=== PATIENT | female | born 1955 | race Caucasian/White ===

== ENCOUNTER 2016-10-31 22:33 | Emergency (ER) | payer MEDICARE, MEDICAID ==
[~2016-10-31] VITALS: Ht 177.8 cm; Wt 121.0 kg
[~2016-10-31 22:33] MED LIST: ALBU.5I NEB; ALBUAER3 INH; BENZ100 PO; CARV3.12 PO; HYDR12.57 PO; LISI2.5T3 PO; PRAV10TA PO; SPIRCAP INH
[2016-10-31 22:40] VITALS: BP 188/103; PULSE 71; RESP 18; TEMP 98.2; O2SAT 98
[2016-10-31] MEDS ORDERED: SODIUM CHLORIDE 0.9% FLUSH 5 ML FLUSH IVF PRN (23:15)
[2016-10-31] MEDS ORDERED: RESP: ALBUTEROL 2.5 MG/IPRATROPIUM 0.5 MG NEB (SCH) INH ONE (23:15)
[2016-10-31 23:16] VITALS: BP 183/87; PULSE 58; RESP 20; TEMP 97.7; O2SAT 98
--- NOTE | 2016-10-31 23:22 | PD ---
HPI Chief Complaint: Cold / Flu Symptoms Time Seen by Provider: 23:14 Travel History International Travel<30 days: No Contact w/Intl Traveler<30days: No Traveled to known affect area: No History of Present Illness HPI 60-year-old female with history of hypertension GERD COPD melanoma and anxiety presents to the emergency department for complaint of recent respiratory illness 3 days with increasing shortness of breath this evening. Intermittent palpitations occasional facial twitching and prescribed codeine cough syrup by her primary care provider for these symptoms. Patient is been a nonsmoker since August. Patient is currently not taking antibiotic. Patient's had no fever chills. Patient states cough is productive of black to yellow sputum. Patient denies chest pain. Patient denies any nausea vomiting abdominal pain or diarrhea. 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 No prior history of any intestinal menses. No dysuria frequency or urgency. Patient states she has been taking her medications as prescribed. Patient is noted with exertion and resting supine shortness of breath has worsened. No report of lower extremity pain or swelling. No history of CAD or CHF. PFSH Past Medical History Narrative Medical COPD hypertension GERD melanoma chemotherapy high cholesterol CVA exploratory laparotomy no tobacco use nursing notes reviewed Asthma: Yes Anxiety: Yes Cancer: Yes Cardiac Catheterization: Yes Cardiovascular Problems: Yes (htn on meds) High Cholesterol: Yes Chemotherapy: Yes (2011) Chest Pain: Yes COPD: Yes Cerebrovascular Accident: Yes Diminished Hearing: No GERD: Yes Hypertension: Yes Respiratory: Yes (copd) Immunizations Current: Yes Menopausal: Yes Ovarian Cysts: Yes Past Surgical History Abdominal Surgery: Yes (EXPLOR. LAP FOR REMOVAL OF FB ) Gynecologic Surgery: Yes (CYST REMOVED LEFT SIDE) Hysterectomy: Yes Other Surgery: Yes (CANCER MELANOMA REMOVAL LEFT ARM) Social History Alcohol Use: No Tobacco Use: No Substance Use: No Allergies-Medications (Allergen,Severity, Reaction): Coded Allergies: Ciprofloxacin (Verified Allergy, Severe, TONGUE SWELLING, 09/22/16) Reported Meds & Prescriptions Reported Meds & Active Scripts Active Reported Robitussin Peak Cold Dm 100-10 mg/5Ml (Dextromethorphan-Guaifenesin) 1 Syp Syp Methylprednisolone 4 Mg Tab 4 Mg PO DAILY Tramadol (Tramadol HCl) 50 Mg Tab 50 Mg PO BID PRN Lovastatin 10 Mg Tab 10 Mg PO DAILY Spiriva Handihaler (Tiotropium Inh) 18 Mcg Cap 18 Mcg INH DAILY 1 capsule = 18 mcg Proair Hfa 8.5 GM Inh (Albuterol Sulfate) 90 Mcg/Act Aer 2 Puff INH Q4-6H PRN 108 mcg/actuation Albuterol Neb (Albuterol Sulfate) 2.5 Mg/0.5 Ml Neb 2.5 Mg NEB Q6HR NEB Note: The Albuterol Sulfate Inhalation Solution is concentrated and must be diluted. Read complete instructions carefully before using. Hydrochlorothiazide 12.5 Mg Cap 12.5 Mg PO DAILY Lisinopril 2.5 Mg Tab 2.5 Mg PO DAILY Review of Systems Except as stated in HPI: all other systems reviewed are Neg General / Constitutional: No: Fever, Chills HENT: Positive: Headaches, Lightheadedness, No: Congestion Cardiovascular: Positive: Palpitations, No: Chest Pain or Discomfort, Diaphoresis, Syncope Respiratory: Positive: Cough, Shortness of Breath, Wheezing, No: Hemoptysis, Pleuritic Pain Gastrointestinal: No: Nausea, Vomiting, Diarrhea, Abdominal Pain Genitourinary: No: Urgency, Frequency, Dysuria Musculoskeletal: No: Myalgias, Arthralgias Skin: No Rash Neurologic: No: Weakness, Dizziness Psychiatric: Positive: Anxiety Hematologic/Lymphatic: No: Lymph Node Enlargement Physical Exam Narrative GENERAL: Well-developed well-nourished female in no acute distress no respiratory distress SKIN: Warm and dry. HEAD: Normocephalic. EYES: No scleral icterus. No injection or drainage. NECK: Supple, trachea midline. No JVD or lymphadenopathy. CARDIOVASCULAR: Regular rate and rhythm without murmurs, gallops, or rubs. RESPIRATORY: Breath sounds equal bilaterally. No accessory muscle use. GASTROINTESTINAL: Abdomen soft, non-tender, nondistended. MUSCULOSKELETAL: No cyanosis, or edema. BACK: Nontender without obvious deformity. No CVA tenderness. Data Data Last Documented VS Vital Signs Date Time Temp Pulse Resp B/P Pulse Ox O2 Delivery O2 Flow Rate FiO2 10/31/16 23:30 20 99 10/31/16 23:23 Nasal Cannula 10/31/16 23:23 57 183/87 10/31/16 23:16 97.7 Orders Complete Blood Count With Diff (10/31/16 23:15) Comprehensive Metabolic Panel (10/31/16 23:15) B-Type Natriuretic Peptide (10/31/16 23:15) Act Partial Throm Time (Ptt) (10/31/16 23:15) Prothrombin Time / Inr (Pt) (10/31/16 23:15) Magnesium (Mg) (10/31/16 23:15) Ckmb (Isoenzyme) Profile (10/31/16 23:15) Troponin I (10/31/16 23:15) Urinalysis - C+S If Indicated (10/31/16 23:15) Iv Access Insert/Monitor (10/31/16 23:15) Electrocardiogram (10/31/16 23:15) Ecg Monitoring (10/31/16 23:15) Oximetry (10/31/16 23:15) Oxygen Administration (10/31/16 23:15) Chest, Single Ap (10/31/16 23:15) Sodium Chloride 0.9% Flush (Ns Flush) (10/31/16 23:15) Albuterol-Ipratropium Neb (Duoneb Neb) (10/31/16 23:15) CKMB (10/31/16 23:50) CKMB% (10/31/16 23:50) D-Dimer (10/31/16 23:50) Labs Laboratory Tests Test 10/31/16 10/31/16 23:30 23:50 Urine Color YELLOW Urine Turbidity CLEAR Urine pH 6.0 Urine Specific [place] 1.015 Urine Protein NEG mg/dL Urine Glucose (UA) NEG mg/dL Urine Ketones NEG mg/dL Urine Occult Blood TRACE Urine Nitrite NEG Urine Bilirubin NEG Urine Leukocyte Esterase SMALL Urine RBC 0-3 /hpf Urine WBC 6-8 /hpf Urine Squamous Epithelial 0-5 /hpf Cells Urine Bacteria RARE /hpf Microscopic Urinalysis Comment CULT NOT INDICATED White Blood Count 9.1 TH/MM3 Red Blood Count 4.17 MIL/MM3 Hemoglobin 12.4 GM/DL Hematocrit 36.5 % Mean Corpuscular Volume 87.5 FL Mean Corpuscular Hemoglobin 29.6 PG Mean Corpuscular Hemoglobin 33.9 % Concent Red Cell Distribution Width 12.3 % Platelet Count 241 TH/MM3 Mean Platelet Volume 10.6 FL Neutrophils (%) (Auto) 78.9 % Lymphocytes (%) (Auto) 16.4 % Monocytes (%) (Auto) 2.9 % Eosinophils (%) (Auto) 0.2 % Basophils (%) (Auto) 1.6 % Neutrophils # (Auto) 7.2 TH/MM3 Lymphocytes # (Auto) 1.5 TH/MM3 Monocytes # (Auto) 0.3 TH/MM3 Eosinophils # (Auto) 0.0 TH/MM3 Basophils # (Auto) 0.1 TH/MM3 CBC Comment DIFF FINAL Differential Comment Prothrombin Time 10.5 SEC Prothromb Time International 1.0 RATIO Ratio Activated Partial 25.4 SEC Thromboplast Time D-Dimer Quantitative (PE/DVT) LESS THAN 0.19 MG/L FEU Sodium Level 139 MEQ/L Potassium Level 4.5 MEQ/L Chloride Level 103 MEQ/L Carbon Dioxide Level 23.0 MEQ/L Anion Gap 13 MEQ/L Blood Urea Nitrogen 23 MG/DL Creatinine 1.10 MG/DL Estimat Glomerular Filtration 50 ML/MIN Rate Random Glucose 115 MG/DL Calcium Level 8.1 MG/DL Magnesium Level 1.8 MG/DL Total Bilirubin 0.3 MG/DL Aspartate Amino Transf 41 U/L (AST/SGOT) Alanine Aminotransferase 54 U/L (ALT/SGPT) Alkaline Phosphatase 50 U/L Total Creatine Kinase 116 U/L Creatine Kinase MB 1.4 NG/ML Troponin I LESS THAN 0.02 NG/ML B-Type Natriuretic Peptide 72 PG/ML Total Protein 6.6 GM/DL Albumin 3.4 GM/DL [facility] Medical Decision Making Medical Screen Exam Complete: Yes Emergency Medical Condition: Yes Medical Record Reviewed: Yes (Sore throat) Interpretation(s) EKG: SB [address] elevation, injury pattern, and no ectopy Troponin I: Less than 0.02, not elevated CK 116, not elevated BNP: 72, not elevated Coagulation studies within normal range CBC is automated differential within normal limits Metabolic panel remarkable for renal insufficiency BUN 23 creatinine 1.10 also mild hypocalcemia of 8.1 bicarbonate and anion gap in normal range; mild elevation of transaminases (patient is aware of prior abnormal LFT's) Differential Diagnosis Dyspnea, exacerbation COPD, pneumonia, CHF, PE, ACS Narrative Course @ 1:25 AM patient resting supine in no distress with stable vital signs room air O2 sats 97-98%; lung sounds clear. Patient aware of lab results ekg and cxr findings. Patient is stable for outpatient management. Diagnosis Primary Impression: Bronchitis Additional Impressions: Persistent dry cough HTN (hypertension) Referrals: Primary Care Physician 2 days Patient Instructions: General Instructions Additional Instructions: Take medications as prescribed Follow-up with primary care provider call office in a.m. Take acetaminophen/Tylenol every 4 hours as needed for fever 100.4F or greater Take new prescription Lasix/furosemide as needed for swelling of your feet Return to emergency for for any concerns or change in condition Med/Other Pt SpecificInfo: Prescription(s) given Scripts Furosemide (Lasix)20 Mg Tab20 Mg PO DAILY #5 TAB Ref 0 Prov:Amie Hager MD 11/01/16 Cephalexin (Keflex)500 Mg [id number] Mg PO Q6H 7 Days Ref 0 Prov:Amie Hager MD 11/01/16 Disposition: 01 DISCHARGE HOME Condition: Stable Amie Hager MD Oct 31, 2016 23:22
[2016-10-31 23:23] VITALS: BP 183/87; PULSE 57; RESP 20; O2SAT 99
[2016-10-31 23:36] LABS: BLOOD, URINE TRACE (NEG); GLUCOSE,URINE NEG (NEG); KETONE, URINE NEG (NEG); NITRITE,URINE NEG (NEG)
[2016-10-31 23:40] LABS: RBC, URINE 0-3 /hpf (0-3); URINE COLOR YELLOW (YELLW/STRAW)
[2016-10-31 23:41] LABS: BACTERIA, URINE RARE /hpf; COMMENT (UR) CULT NOT INDICATED; CULTURE IF INDICATED CULT NOT INDICATED; SQUAMOUS EPITHELIAL CELL URINE 0-5 /hpf (0-5)
[2016-10-31 23:42] VITALS: BP 154/88; PULSE 58; RESP 20; O2SAT 95
[2016-10-31 23:58] LABS: AUTOMATED NEUTROPHIL # 7.2 TH/MM3 (1.8-7.7); BASOPHIL # 0.1 TH/MM3 (0-0.2); BASOPHIL % 1.6 % (0.0-2.0); EOSINOPHIL % 0.2 % (0.0-4.0); HEMATOCRIT 36.5 % (35.0-46.0); HEMO FLAGS DIFF FINAL; LYMPH % 16.4 % (9.0-44.0); LYMPHOCYTE # 1.5 TH/MM3 (1.0-4.8); MEAN CELL VOLUME 87.5 FL (80.0-100.0); MEAN CORPUSCULAR HEMOGLOBIN 29.6 PG (27.0-34.0); MEAN CORPUSCULAR HGB CONC 33.9 % (32.0-36.0); MONO % 2.9 % (0.0-8.0); NEUT % 78.9 % (16.0-70.0); PLATELET COUNT 241 TH/MM3 (150-450); RED BLOOD COUNT 4.17 MIL/MM3 (4.00-5.30); RED CELL DISTRIBUTION WIDTH 12.3 % (11.6-17.2); WHITE BLOOD COUNT 9.1 TH/MM3 (4.0-11.0)
[2016-11-01 00:05] LABS: CHLORIDE 103 MEQ/L (98-107); POTASSIUM 4.5 MEQ/L (3.5-5.1); SODIUM (NA) 139 MEQ/L (136-145)
--- NOTE | 2016-11-01 00:07 | RADHPO ---
EXAM DATE/TIME: 10/31/2016 23:55 [facility] COMPARISON: CHEST SINGLE AP, September 22, 2016, 18:04. INDICATIONS : Shortness of breath. MEDICAL HISTORY : Chronic obstructive pulmonary disease. Emphysema. Hypertension. SURGICAL HISTORY : None. ENCOUNTER: Initial ACUITY: 1 day PAIN SCORE: 0/10 LOCATION: Bilateral chest FINDINGS: Portable upright AP view of the chest demonstrates a normal-sized cardiac silhouette. There are mild interstitial opacities in the lower lung zones bilaterally. No pleural effusion or pneumothorax is vi sualized. Bones and soft tissues demonstrate no acute finding. CONCLUSION: Mild interstitial opacities in lower lung zones could represent pulmonary edema in the appropriate cl inical setting. Junior Hernández MD on November 01, 2016 at 0:05 Board Certified Radiologist. This report was verified electronically.
[2016-11-01 00:09] LABS: ANION GAP 13 MEQ/L (5-15); BLOOD UREA NITROGEN 23 MG/DL (7-18); MAGNESIUM 1.8 MG/DL (1.5-2.5)
[2016-11-01 00:10] LABS: APTT (PATIENT) 25.4 SEC (24.3-30.1); PROTHROMBIN TIME - PATIENT 10.5 SEC (9.8-11.6)
[2016-11-01 00:12] LABS: ALT (GPT) 54 U/L (10-53); AST (GOT) 41 U/L (15-37); GLOMERULAR FILTRATION RATE 50 ML/MIN (>89)
[2016-11-01 00:13] LABS: TOTAL BILIRUBIN ADULT 0.3 MG/DL (0.2-1.0)
[2016-11-01 00:14] LABS: ALKALINE PHOSPHATASE 50 U/L (45-117); CREATINE KINASE 116 U/L (26-192)
[2016-11-01] MEDS ORDERED: METH4TAB6 PO (00:15)
[2016-11-01] MEDS ORDERED: TRAM50TA PO (00:15)
[2016-11-01] MEDS ORDERED: ROBISYP8 (00:15)
[2016-11-01] MEDS ORDERED: LOVA10TA PO (00:15)
[2016-11-01 00:27] LABS: CKMB 1.4 NG/ML (0.5-3.6)
[2016-11-01 00:42] VITALS: BP 140/73; PULSE 60; RESP 20; O2SAT 95
[2016-11-01] MEDS ORDERED: CEPH-460 PO (01:29)
[2016-11-01 01:30] VITALS: BP 145/79
[2016-11-01] MEDS ORDERED: FURO1TAB62 PO (01:30)
--- NOTE | 2016-11-01 13:31 | EKG ---
Date Performed: 10/31/2016 Time Performed: 23:28:14 PTAGE: 60 years EKG: Sinus bradycardia Normal ECG except for rate PREVIOUS TRACING : 03/30/2015 16.47 Since previous tracing, no significant change noted DOCTOR: Denae Hunt Interpretating Date/Time 11/01/2016 13:30:25
== END 2016-11-01 01:48 | disposition home or self-care (01) ==
LOC: PHED 22:33
DX: J44.9 Chronic obstructive pulmonary disease, unspecified (principal); J45.909 Unspecified asthma, uncomplicated; I10 Essential (primary) hypertension; Z79.899 Other long term (current) drug therapy
CPT/HCPCS: 71010; 80053; 81001; 82550; 82552; 83735; 83880; 84484; 85025; 85379; 85610; 85730; 93005; 94664

== ENCOUNTER 2017-01-08 14:15 | Emergency (ER) | payer MEDICARE, MEDICAID ==
[~2017-01-08] VITALS: Ht 152.4 cm; Wt 125.0 kg
[~2017-01-08 14:15] MED LIST changes: -BENZ100 PO; -CARV3.12 PO; +CEPH-460 PO; +FURO1TAB62 PO; +LOVA10TA PO; +METH4TAB6 PO; -PRAV10TA PO; +ROBISYP8; +TRAM50TA PO
[2017-01-08 14:21] VITALS: BP 129/84; PULSE 74; RESP 16; TEMP 98.2; O2SAT 96
[2017-01-08] MEDS ORDERED: CARV12.52 PO (14:53)
[2017-01-08] MEDS ORDERED: LISI40TA PO (14:53)
[2017-01-08] MEDS ORDERED: ESOM1CAP16 PO (14:53)
[2017-01-08] MEDS ORDERED: ROBA750T PO (14:53)
[2017-01-08] MEDS ORDERED: LIDO1CRE8 TOPICAL (14:53)
[2017-01-08] MEDS ORDERED: LOVA40TA PO (14:53)
[2017-01-08] MEDS ORDERED: NAPR375T PO (14:53)
--- NOTE | 2017-01-08 15:00 | PD ---
HPI Chief Complaint: Dizziness Time Seen by Provider: 14:27 Travel History International Travel<30 days: No Contact w/Intl Traveler<30days: No Traveled to known affect area: No History of Present Illness HPI This 61-year-old woman who presents to the emergency department complaining of feeling incoherent weak and dizzy starting today. Chest with some right sided abdominal pain. She is a history of stomach problems and had a recent endoscopy and CT scan of her belly. She states she otherwise had been feeling generally well. She states she still feels dizzy now. She otherwise has been feeling generally well and healthy. No other complaints. History Past Medical History Narrative Medical COPD Hypertension GERD Hyperlipidemia History of melanoma Borderline diabetes Tetanus Vaccination: < 5 Years Influenza Vaccination: No Menopausal: Yes : 1 Para: 1 Social History Alcohol Use: No Tobacco Use: No Allergies-Medications (Allergen,Severity, Reaction): Coded Allergies: Ciprofloxacin (Verified Allergy, Severe, TONGUE SWELLING, 01/08/17) Reported Meds & Prescriptions Reported Meds & Active Scripts Active Lasix (Furosemide) 20 Mg Tab 20 Mg PO DAILY Reported Robaxin (Methocarbamol) 750 Mg Tab 750 Mg PO Q4H Naproxen 375 Mg Tab 375 Mg PO BID Lovastatin 40 Mg Tab 40 Mg PO DAILY Lisinopril 40 Mg Tab 40 Mg PO DAILY Lidocaine Topical (Lidocaine HCl) 5 % Cream 1 Applic TOPICAL QID PRN Esomeprazole DR 40 Mg Capdr 40 Mg PO DAILY Carvedilol 12.5 Mg Tab 12.5 Mg PO BID Tramadol (Tramadol HCl) 50 Mg Tab 50 Mg PO BID PRN Proair Hfa 8.5 GM Inh (Albuterol Sulfate) 90 Mcg/Act Aer 2 Puff INH Q4-6H PRN 108 mcg/actuation Albuterol Neb (Albuterol Sulfate) 2.5 Mg/0.5 Ml Neb 2.5 Mg NEB Q6HR NEB Note: The Albuterol Sulfate Inhalation Solution is concentrated and must be diluted. Read complete instructions carefully before using. Hydrochlorothiazide 12.5 Mg Cap 12.5 Mg PO DAILY Review of Systems Except as stated in HPI: all other systems reviewed are Neg Physical Exam Narrative GENERAL: Well-appearing 61 year-old woman, no acute distress. SKIN: Focused skin assessment warm/dry. HEAD: Atraumatic. Normocephalic. EYES: Pupils equal and round. No scleral icterus. No injection or drainage. ENT: No nasal bleeding or discharge. Mucous membranes pink and moist. NECK: Trachea midline. No JVD. CARDIOVASCULAR: Regular rate and rhythm. No murmur appreciated. RESPIRATORY: No accessory muscle use. Clear to auscultation. Breath sounds equal bilaterally. GASTROINTESTINAL: Abdomen soft, non-tender, nondistended. Hepatic and splenic margins not palpable. MUSCULOSKELETAL: No obvious deformities. No clubbing. No cyanosis. No edema. NEUROLOGICAL: Awake and alert. No obvious cranial nerve deficits. No facial asymmetry. EOMs full and equal without nystagmus. Strength full and equal upper and lower extremities proximal distal muscle groups. Normal finger to nose. Normal [id number]. PSYCHIATRIC: Appropriate mood and affect; insight and judgment normal. Data Data Last Documented VS Vital Signs Date Time Temp Pulse Resp B/P Pulse Ox O2 Delivery O2 Flow Rate FiO2 01/08/17 14:21 98.2 74 16 129/84 96 Orders Complete Blood Count With Diff (01/08/17 14:45) Comprehensive Metabolic Panel (01/08/17 14:45) Urinalysis - C+S If Indicated (01/08/17 14:45) Iv Access Insert/Monitor (01/08/17 14:45) Sodium Chlor 0.9% 1000 Ml Inj (Ns 1000 M (01/08/17 16:15) Labs Laboratory Tests Test 01/08/17 01/08/17 15:15 15:37 White Blood Count 6.7 TH/MM3 Red Blood Count 4.11 MIL/MM3 Hemoglobin 12.3 GM/DL Hematocrit 35.8 % Mean Corpuscular Volume 87.1 FL Mean Corpuscular Hemoglobin 30.0 PG Mean Corpuscular Hemoglobin 34.5 % Concent Red Cell Distribution Width 12.0 % Platelet Count 241 TH/MM3 Mean Platelet Volume 10.1 FL Neutrophils (%) (Auto) 63.6 % Lymphocytes (%) (Auto) 24.9 % Monocytes (%) (Auto) 6.8 % Eosinophils (%) (Auto) 1.4 % Basophils (%) (Auto) 3.3 % Neutrophils # (Auto) 4.2 TH/MM3 Lymphocytes # (Auto) 1.7 TH/MM3 Monocytes # (Auto) 0.5 TH/MM3 Eosinophils # (Auto) 0.1 TH/MM3 Basophils # (Auto) 0.2 TH/MM3 CBC Comment DIFF FINAL Differential Comment Sodium Level 139 MEQ/L Potassium Level 3.7 MEQ/L Chloride Level 103 MEQ/L Carbon Dioxide Level 22.8 MEQ/L Anion Gap 13 MEQ/L Blood Urea Nitrogen 38 MG/DL Creatinine 1.30 MG/DL Estimat Glomerular Filtration 41 ML/MIN Rate Random Glucose 105 MG/DL Calcium Level 9.2 MG/DL Total Bilirubin 0.5 MG/DL Aspartate Amino Transf 37 U/L (AST/SGOT) Alanine Aminotransferase 39 U/L (ALT/SGPT) Alkaline Phosphatase 46 U/L Total Protein 7.4 GM/DL Albumin 4.0 GM/DL Urine Collection Type CLEAN CATCH Urine Color YELLOW Urine Turbidity CLEAR Urine pH 5.5 Urine Specific [place] 1.008 Urine Protein NEG mg/dL Urine Glucose (UA) NEG mg/dL Urine Ketones NEG mg/dL Urine Occult Blood NEG Urine Nitrite NEG Urine Bilirubin NEG Urine Leukocyte Esterase TRACE Urine WBC 0-2 /hpf Urine Squamous Epithelial 6-8 /hpf Cells Microscopic Urinalysis Comment CULT NOT INDICATED Urine Collection Time 15:37 [facility] Medical Decision Making Medical Screen Exam Complete: Yes Emergency Medical Condition: Yes Interpretation(s) LABS: CBC is unremarkable. CMP is unremarkable. Mildly elevated BUN and creatinine UA is unremarkable Differential Diagnosis Weakness, dehydration, UTI, stroke, Narrative Course Medical decision making INITIAL: Is a well-appearing 58 year-old woman with general symptoms of feeling weak and dizzy. She looks generally well. I don't see any evidence of stroke. She states his belly pain is very new for her but she has a lot of previous diagnostic tests in her abdomen for unclear reasons including a recent CT scan. We'll check screening labs. It does look well have her follow-up with her primary physician. Diagnosis Primary Impression: Dizziness Additional Instructions: Drink plenty of fluids stay well-hydrated. Follow up with her primary doctor on Friday as planned. Return to the emergency department for any new or worsening symptoms. Disposition: 01 DISCHARGE HOME Condition: Stable Chino Riley MD Jan 08, 2017 15:00
[2017-01-08 15:29] LABS: AUTOMATED NEUTROPHIL # 4.2 TH/MM3 (1.8-7.7); BASOPHIL # 0.2 TH/MM3 (0-0.2); BASOPHIL % 3.3 % (0.0-2.0); EOSINOPHIL # 0.1 TH/MM3 (0-0.4); EOSINOPHIL % 1.4 % (0.0-4.0); HEMATOCRIT 35.8 % (35.0-46.0); HEMO FLAGS DIFF FINAL; LYMPH % 24.9 % (9.0-44.0); LYMPHOCYTE # 1.7 TH/MM3 (1.0-4.8); MEAN CELL VOLUME 87.1 FL (80.0-100.0); MEAN CORPUSCULAR HGB CONC 34.5 % (32.0-36.0); MONO % 6.8 % (0.0-8.0); NEUT % 63.6 % (16.0-70.0); PLATELET COUNT 241 TH/MM3 (150-450); RED BLOOD COUNT 4.11 MIL/MM3 (4.00-5.30); WHITE BLOOD COUNT 6.7 TH/MM3 (4.0-11.0)
[2017-01-08 15:44] LABS: CHLORIDE 103 MEQ/L (98-107); POTASSIUM 3.7 MEQ/L (3.5-5.1); SODIUM (NA) 139 MEQ/L (136-145)
[2017-01-08 15:49] LABS: ANION GAP 13 MEQ/L (5-15); BICARBONATE 22.8 MEQ/L (21.0-32.0); BLOOD UREA NITROGEN 38 MG/DL (7-18)
[2017-01-08 15:52] LABS: ALT (GPT) 39 U/L (10-53); AST (GOT) 37 U/L (15-37)
[2017-01-08 15:53] LABS: GLOMERULAR FILTRATION RATE 41 ML/MIN (>89)
[2017-01-08 15:54] LABS: TOTAL BILIRUBIN ADULT 0.5 MG/DL (0.2-1.0)
[2017-01-08 15:55] LABS: BLOOD, URINE NEG (NEG); GLUCOSE,URINE NEG (NEG); KETONE, URINE NEG (NEG); NITRITE,URINE NEG (NEG); PH, URINE 5.5 (5.0-8.5)
[2017-01-08 15:55] LABS: ALKALINE PHOSPHATASE 46 U/L (45-117)
[2017-01-08 16:00] LABS: COMMENT (UR) CULT NOT INDICATED; CULTURE IF INDICATED CULT NOT INDICATED; METHOD OF COLLECTION CLEAN CATCH; URINE COLOR YELLOW (YELLW/STRAW); WBC, URINE 0-2 /hpf (0-5)
[2017-01-08] MEDS ORDERED: SODIUM CHLOR 0.9% 1000 ML INJ 1,000 ML IV SCH (16:15)
== END 2017-01-08 17:31 | disposition home or self-care (01) ==
LOC: PHED 14:15
DX: R42 Dizziness and giddiness (principal); J44.9 Chronic obstructive pulmonary disease, unspecified; I10 Essential (primary) hypertension; E78.5 Hyperlipidemia, unspecified; R73.03 Prediabetes; K21.9 Gastro-esophageal reflux disease without esophagitis
CPT/HCPCS: 80053; 81001; 85025; 99284; J7030

== ENCOUNTER 2017-02-14 14:22 | Emergency (ER) | payer MEDICARE, MEDICAID ==
[~2017-02-14] VITALS: Ht 175.3 cm; Wt 116.0 kg
[~2017-02-14 14:22] MED LIST changes: +CARV12.52 PO; -CEPH-460 PO; +ESOM1CAP16 PO; +LIDO1CRE8 TOPICAL; -LISI2.5T3 PO; +LISI40TA PO; -LOVA10TA PO; +LOVA40TA PO; -METH4TAB6 PO; +NAPR375T PO; +ROBA750T PO; -ROBISYP8; -SPIRCAP INH
[2017-02-14 14:26] VITALS: BP 145/83; PULSE 70; RESP 18; TEMP 98.8; O2SAT 95
[2017-02-14] MEDS ORDERED: ERGO1CAP10 PO (14:41)
[2017-02-14] MEDS ORDERED: CARV3.12 PO (14:41)
[2017-02-14] MEDS ORDERED: GEMF600T PO (14:41)
[2017-02-14] MEDS ORDERED: ZITHTAB PO ×2 (14:47→14:53)
[2017-02-14] MEDS ORDERED: PRED10PA PO ×2 (14:47→14:53)
[2017-02-14] MEDS ORDERED: TUSSSUS2 PO ×2 (14:47→14:53)
--- NOTE | 2017-02-14 14:48 | PD ---
HPI . Cough Chief Complaint: Cold / Flu Symptoms Time Seen by Provider: 14:35 Travel History International Travel<30 days: No Contact w/Intl Traveler<30days: No Traveled to known affect area: No History of Present Illness HPI Patient presents with about a 3 or 4 day history of cough. Cough is productive of yellow sputum. No fever. Symptoms are relieved by a prescription cough syrup. She has also been using her MDI and nebulizer machine. She has a history of COPD. She states that the cough has made her chest hurt and has caused some muscle spasms in her upper abdomen. Pain is rated as 9/10. PFSH Past Medical History Hx Anticoagulant Therapy: No Asthma: Yes Anxiety: Yes Cancer: Yes Cardiac Catheterization: Yes Cardiovascular Problems: Yes (CHOL, HTN) High Cholesterol: Yes Chemotherapy: Yes (2 YRS AGO) Chest Pain: Yes COPD: Yes Cerebrovascular Accident: Yes (CVA) Diabetes: No Diminished Hearing: No GERD: Yes Hypertension: Yes Respiratory: Yes (BRONCHITIS AND COPD, EMPHYSEMA) Immunizations Current: Yes ?: Not Menopausal: Yes : 1 Para: 1 Ovarian Cysts: Yes Past Surgical History Abdominal Surgery: Yes (EXPLOR. LAP FOR REMOVAL OF FB ) Gynecologic Surgery: Yes (CYST REMOVED LEFT SIDE) Hysterectomy: Yes Other Surgery: Yes (CANCER MELANOMA REMOVAL LEFT ARM) Social History Alcohol Use: No Tobacco Use: No Substance Use: No Allergies-Medications (Allergen,Severity, Reaction): Coded Allergies: Ciprofloxacin (Verified Allergy, Severe, TONGUE SWELLING, 01/08/17) Reported Meds & Prescriptions Reported Meds & Active Scripts Active Lasix (Furosemide) 20 Mg Tab 20 Mg PO DAILY Reported Robaxin (Methocarbamol) 750 Mg Tab 750 Mg PO Q4H Naproxen 375 Mg Tab 375 Mg PO BID Lovastatin 40 Mg Tab 40 Mg PO DAILY Lisinopril 40 Mg Tab 40 Mg PO DAILY Lidocaine Topical (Lidocaine HCl) 5 % Cream 1 Applic TOPICAL QID PRN Esomeprazole DR 40 Mg Capdr 40 Mg PO DAILY Carvedilol 12.5 Mg Tab 12.5 Mg PO BID Tramadol (Tramadol HCl) 50 Mg Tab 50 Mg PO BID PRN Proair Hfa 8.5 GM Inh (Albuterol Sulfate) 90 Mcg/Act Aer 2 Puff INH Q4-6H PRN 108 mcg/actuation Albuterol Neb (Albuterol Sulfate) 2.5 Mg/0.5 Ml Neb 2.5 Mg NEB Q6HR NEB Note: The Albuterol Sulfate Inhalation Solution is concentrated and must be diluted. Read complete instructions carefully before using. Hydrochlorothiazide 12.5 Mg Cap 12.5 Mg PO DAILY Review of Systems Except as stated in HPI: all other systems reviewed are Neg General / Constitutional: Positive: Other (diaphoresis which chronic for her lately.), No: Fever, Chills Cardiovascular: Positive: Chest Pain or Discomfort Respiratory: Positive: Cough, Shortness of Breath Musculoskeletal: Positive: Myalgias Physical Exam Narrative GENERAL: Intermittent asthmatic sounding cough. SKIN: Warm and dry. HEAD: Atraumatic. Normocephalic. EYES: Pupils equal and round. ENT: No nasal bleeding or discharge. Mucous membranes pink and moist. NECK: Trachea midline. Neck is supple. CARDIOVASCULAR: Regular rate and rhythm. Heart sounds are normal. RESPIRATORY: No accessory muscle use. Lungs have good air movement and I do not hear any wheezing. GASTROINTESTINAL: Abdomen soft, non-tender, nondistended. MUSCULOSKELETAL: No obvious deformities. No edema. NEUROLOGICAL: Awake and alert. No obvious cranial nerve deficits. Motor grossly within normal limits. Normal speech. PSYCHIATRIC: Appropriate mood and affect; insight and judgment normal. Data Data Last Documented VS Vital Signs Date Time Temp Pulse Resp B/P Pulse Ox O2 Delivery O2 Flow Rate FiO2 02/14/17 14:26 98.8 70 18 145/83 95 MDM Medical Decision Making Medical Screen Exam Complete: Yes Emergency Medical Condition: Yes Differential Diagnosis Differential diagnosis includes but is not limited to viral respiratory illness , bronchitis, pneumonia, allergies, CHF, asthma/COPD. Narrative Course This is a patient with COPD presents with a three-day history of productive cough. Her lungs sound clear. Respiratory rate is 18 and sats are 95% on room air. The patient reports that she has been treated for similar symptoms in the past with antibiotics and/or steroids. She also has a prescription for prescription strength cough syrup. She states that she has a little bit of left but not much. I will give her prescriptions for Zithromax, prednisone and Tussionex. Diagnosis Primary Impression: COPD (chronic obstructive pulmonary disease) Qualified Code: J44.1 - Chronic obstructive pulmonary disease with acute exacerbation Patient Instructions: COPD (Chronic Obstructive Pulmonary Disease) (DC), General Instructions Additional Instructions: Usual your inhaler or nebulizer machine every 4 hours until this cough resolves. Scripts Hydrocodone-Chlorpheniramine 12 HR Liq (Tussionex Pennkinetic Ext 12 HR Liq)10- 8 Mg/5 Ml Susp5 Ml PO Q12H PRN (COUGH AND/OR COLD SYMPTOMS) #60 ML Ref 0 Prov:Saida Calderon MD 02/14/17 Prednisone (21) 10 mg tab Dose Pack 10 Mg Pack10 Mg PO DIRECTED #1 DSPK Ref 0 Prov:Saida Calderon MD 02/14/17 Azithromycin (Zithromax Z-Atif)250 Mg [id number] Mg PO DIRECTED #1 DSPK Ref 0 500 MG (2 tabs) day 1, then 1 tab days 2-5. Prov:Saida Calderon MD 02/14/17 Disposition: 01 DISCHARGE HOME Condition: Stable Saida Calderon MD February 14, 2017 14:48
[2017-02-14] MEDS ORDERED: CLON0.1T PO (15:27)
== END 2017-02-14 14:59 | disposition home or self-care (01) ==
LOC: PHED 14:22
DX: J44.1 Chronic obstructive pulmonary disease with (acute) exacerbation (principal); R07.9 Chest pain, unspecified; M62.838 Other muscle spasm; I10 Essential (primary) hypertension; E78.00 Pure hypercholesterolemia, unspecified; Z87.09 Personal history of other diseases of the respiratory system; Z86.59 Personal history of other mental and behavioral disorders; Z86.79 Personal history of other diseases of the circulatory system; Z87.19 Personal history of other diseases of the digestive system
CPT/HCPCS: 99283

== ENCOUNTER 2017-03-11 10:15 | Emergency (ER) | payer MEDICARE, MEDICAID ==
[~2017-03-11] VITALS: Ht 177.8 cm; Wt 118.0 kg
[~2017-03-11 10:15] MED LIST changes: +CARV3.12 PO; +CLON0.1T PO; +ERGO1CAP10 PO; -FURO1TAB62 PO; +GEMF600T PO; -HYDR12.57 PO; -LIDO1CRE8 TOPICAL; -NAPR375T PO; +PRED10PA PO; -TRAM50TA PO; +TUSSSUS2 PO; +ZITHTAB PO
[2017-03-11 10:19] VITALS: BP 158/83; PULSE 60; RESP 18; TEMP 98.3; O2SAT 98
[2017-03-11] MEDS ORDERED: SODIUM CHLORIDE 0.9% FLUSH 10 ML FLUSH IVF PRN (11:00)
--- NOTE | 2017-03-11 11:07 | RADHPO ---
EXAM DATE/TIME: 03/11/2017 10:57 [facility] COMPARISON: CHEST SINGLE AP, October 31, 2016, 23:55. INDICATIONS : Short of breath. MEDICAL HISTORY : Hypercholesterolemia. Hypertension Chronic obstructive pulmonary disease. Asthma. GERD. Ovarian c yst. Gout. Chemotherapy. Melanoma. SURGICAL HISTORY : Hysterectomy. Cardia cath. ENCOUNTER: Initial ACUITY: 4 - 6 days PAIN SCORE: 0/10 LOCATION: chest FINDINGS: A single view of the chest demonstrates the lungs to be symmetrically aerated without evidence of mas s, infiltrate or effusion. The cardiomediastinal contours are unremarkable. Osseous structures are intact. CONCLUSION: No acute disease. No significant change has occurred. Simon Sanz MD on March 11, 2017 at 11:05 Board Certified Radiologist. This report was verified electronically.
[2017-03-11 11:16] VITALS: RESP 18; O2SAT 98
[2017-03-11 11:20] LABS: AUTOMATED NEUTROPHIL # 4.1 TH/MM3 (1.8-7.7); BASOPHIL # 0.1 TH/MM3 (0-0.2); BASOPHIL % 0.9 % (0.0-2.0); EOSINOPHIL # 0.1 TH/MM3 (0-0.4); EOSINOPHIL % 1.7 % (0.0-4.0); HEMATOCRIT 35.4 % (35.0-46.0); HEMO FLAGS DIFF FINAL; LYMPH % 26.8 % (9.0-44.0); LYMPHOCYTE # 1.7 TH/MM3 (1.0-4.8); MEAN CELL VOLUME 89.7 FL (80.0-100.0); MEAN CORPUSCULAR HEMOGLOBIN 29.6 PG (27.0-34.0); MONO % 7.9 % (0.0-8.0); NEUT % 62.7 % (16.0-70.0); PLATELET COUNT 249 TH/MM3 (150-450); RED BLOOD COUNT 3.95 MIL/MM3 (4.00-5.30); RED CELL DISTRIBUTION WIDTH 13.2 % (11.6-17.2); WHITE BLOOD COUNT 6.4 TH/MM3 (4.0-11.0)
[2017-03-11 11:30] LABS: POTASSIUM 4.3 MEQ/L (3.5-5.1)
[2017-03-11 11:33] LABS: BICARBONATE 25.8 MEQ/L (21.0-32.0)
[2017-03-11 11:36] LABS: INTERNATIONAL NORMALIZED RATIO 0.9 RATIO; PROTHROMBIN TIME - PATIENT 10.3 SEC (9.8-11.6)
--- NOTE | 2017-03-11 11:40 | PD ---
HPI Chief Complaint: Respiratory Symptoms Time Seen by Provider: 10:38 Travel History International Travel<30 days: No Contact w/Intl Traveler<30days: No Traveled to known affect area: No History of Present Illness HPI 61-year-old female presents with nasal congestion, sore throat, shortness of breath and intermittent groin pain over the past couple of days. She states she went to an urgent care last week and they gave her medication but she's not feeling better. She called her primary doctor and they stated that she needed to be evaluated for possible blood clot. She states that she's not having any swelling in her legs or other concurrent complaints at this time. She denies increased use in her COPD medications. She feels worse when she moves around. She denies other modifying factors. Duration is about a week. PFSH Past Medical History Hx Anticoagulant Therapy: Yes (325 ASA DAILY) Asthma: Yes Anxiety: Yes Cancer: Yes Cardiac Catheterization: Yes Cardiovascular Problems: Yes (HTN, CHOL) High Cholesterol: Yes Chemotherapy: Yes (2 YRS AGO) Chest Pain: Yes COPD: Yes Cerebrovascular Accident: Yes (CVA) Diabetes: No Diminished Hearing: No GERD: Yes Hypertension: Yes Respiratory: Yes (COPD) Immunizations Current: Yes ?: Not Menopausal: Yes : 1 Para: 1 Ovarian Cysts: Yes Past Surgical History Abdominal Surgery: Yes (EXPLOR. LAP FOR REMOVAL OF FB ) Gynecologic Surgery: Yes (CYST REMOVED LEFT SIDE) Hysterectomy: Yes Other Surgery: Yes (CANCER MELANOMA REMOVAL LEFT ARM) Social History Alcohol Use: No Tobacco Use: No (QUIT 9 MONTHS AGO) Substance Use: No Allergies-Medications (Allergen,Severity, Reaction): Coded Allergies: Ciprofloxacin (Verified Allergy, Severe, TONGUE SWELLING, 03/11/17) Reported Meds & Prescriptions Reported Meds & Active Scripts Active Reported Gemfibrozil 600 Mg Tab 600 Mg PO BIDAC Take 30 minutes prior to breakfast and dinner. Robaxin (Methocarbamol) 750 Mg Tab 750 Mg PO Q4H Lovastatin 40 Mg Tab 40 Mg PO DAILY Lisinopril 40 Mg Tab 40 Mg PO DAILY Esomeprazole DR 40 Mg Capdr 40 Mg PO DAILY Carvedilol 12.5 Mg Tab 3.125 Mg PO BID Proair Hfa 8.5 GM Inh (Albuterol Sulfate) 90 Mcg/Act Aer 2 Puff INH Q4-6H PRN 108 mcg/actuation Albuterol Neb (Albuterol Sulfate) 2.5 Mg/0.5 Ml Neb 2.5 Mg NEB Q6HR NEB Note: The Albuterol Sulfate Inhalation Solution is concentrated and must be diluted. Read complete instructions carefully before using. Review of Systems Except as stated in HPI: all other systems reviewed are Neg Physical Exam Narrative GENERAL: Well-nourished, well-developed patient. Well-appearing SKIN: Warm and dry. HEAD: Normocephalic and atraumatic. EYES: No injection or drainage. ENT: No nasal drainage noted. Posterior oropharynx without exudate or erythema , uvula midline NECK: Supple, trachea midline. No meningeal signs CARDIOVASCULAR: Regular rate and rhythm RESPIRATORY: Breath sounds equal bilaterally. No accessory muscle use. GASTROINTESTINAL: Abdomen soft, non-tender, nondistended. EXTREMITIES: No edema. no specific joint pain NEUROLOGICAL: Awake and alert. Motor and sensory grossly within normal limits. Normal speech. Data Data Last Documented VS Vital Signs Date Time Temp Pulse Resp B/P Pulse Ox O2 Delivery O2 Flow Rate FiO2 03/11/17 11:16 18 98 Room Air 03/11/17 10:19 98.3 60 158/83 Orders Complete Blood Count With Diff (03/11/17 10:47) Basic Metabolic Panel (Bmp) (03/11/17 10:47) D-Dimer (03/11/17 10:47) Act Partial Throm Time (Ptt) (03/11/17 10:47) Prothrombin Time / Inr (Pt) (03/11/17 10:47) Iv Access Insert/Monitor (03/11/17 10:47) Ecg Monitoring (03/11/17 10:47) Oximetry (03/11/17 10:47) Chest, Single Ap (03/11/17 10:47) Sodium Chloride 0.9% Flush (Ns Flush) (03/11/17 11:00) Labs Laboratory Tests Test 03/11/17 11:10 White Blood Count 6.4 TH/MM3 Red Blood Count 3.95 MIL/MM3 Hemoglobin 11.7 GM/DL Hematocrit 35.4 % Mean Corpuscular Volume 89.7 FL Mean Corpuscular Hemoglobin 29.6 PG Mean Corpuscular Hemoglobin 33.0 % Concent Red Cell Distribution Width 13.2 % Platelet Count 249 TH/MM3 Mean Platelet Volume 10.5 FL Neutrophils (%) (Auto) 62.7 % Lymphocytes (%) (Auto) 26.8 % Monocytes (%) (Auto) 7.9 % Eosinophils (%) (Auto) 1.7 % Basophils (%) (Auto) 0.9 % Neutrophils # (Auto) 4.1 TH/MM3 Lymphocytes # (Auto) 1.7 TH/MM3 Monocytes # (Auto) 0.5 TH/MM3 Eosinophils # (Auto) 0.1 TH/MM3 Basophils # (Auto) 0.1 TH/MM3 CBC Comment DIFF FINAL Differential Comment Prothrombin Time 10.3 SEC Prothromb Time International 0.9 RATIO Ratio Activated Partial 25.0 SEC Thromboplast Time D-Dimer Quantitative (PE/DVT) 0.20 MG/L FEU Sodium Level 143 MEQ/L Potassium Level 4.3 MEQ/L Chloride Level 108 MEQ/L Carbon Dioxide Level 25.8 MEQ/L Anion Gap 9 MEQ/L Blood Urea Nitrogen 19 MG/DL Creatinine 1.50 MG/DL Estimat Glomerular Filtration 35 ML/MIN Rate Random Glucose 92 MG/DL Calcium Level 8.9 MG/DL [facility] Medical Decision Making Medical Screen Exam Complete: Yes Emergency Medical Condition: Yes Medical Record Reviewed: Yes (past history confirmed) Interpretation(s) CBC & BMP Diagram 03/11/17 11:10 D-dimer is negative Last 24 hours Impressions Chest X-Ray 03/11/17 1047 Signed Impressions: Service Date/Time: Saturday, March 11, 2017 10:57 - CONCLUSION: No acute disease. No significant change has occurred. Simon Sanz MD Differential Diagnosis PE, pneumonia, URI, anemia Narrative Course Will check blood work, chest x-ray and reevaluate. Low risk for PE D-dimer is negative. Patient with likely mild URI. Patient is happy with continued supportive care. No active wheezing. Patient denies any new complaints, all questions answered. Patient knows that follow up is incumbent on them and to return to the emergency room immediately if new or worsening symptoms develop. Patient given strict return precautions, vitals reviewed and are normal, agrees to further workup as an outpatient. Inform patient of mild increase in baseline creatinine and that this will need to be monitored as an outpatient Diagnosis Primary Impression: Upper respiratory infection Qualified Code: J06.9 - Upper respiratory tract infection, unspecified type Additional Impression: Renal insufficiency Patient Instructions: General Instructions Additional Instructions: return as needed, follow with primary tommorrow, continue supportive care Med/Other Pt SpecificInfo: No Change to Meds Disposition: 01 DISCHARGE HOME Condition: Stable Jennifer Grimaldo MD Mar 11, 2017 11:40
[2017-03-11 11:58] VITALS: BP 151/80; PULSE 60; RESP 18; O2SAT 98
== END 2017-03-11 12:00 | disposition home or self-care (01) ==
LOC: PHED 10:15
DX: J06.9 Acute upper respiratory infection, unspecified (principal); N28.9 Disorder of kidney and ureter, unspecified; J45.909 Unspecified asthma, uncomplicated; J44.9 Chronic obstructive pulmonary disease, unspecified; I10 Essential (primary) hypertension; Z79.899 Other long term (current) drug therapy; Z87.891 Personal history of nicotine dependence
CPT/HCPCS: 71010; 80048; 85025; 85379; 85610; 85730; 99284

== ENCOUNTER → 2017-05-05 | Outpatient (CLI) | payer MEDICARE, MEDICAID ==
[~2017-05-05] MED LIST changes: -CARV3.12 PO; -CLON0.1T PO; -ERGO1CAP10 PO; -PRED10PA PO; -TUSSSUS2 PO; -ZITHTAB PO
[2017-05-05 09:32] LABS: BLOOD GAS BASE EXCESS -1.4 mmol/L (-2-2); BLOOD GAS HCO3 22 mmol/L (22-26); BLOOD GAS METHEMOGLOBIN 1.9 % (0-2); BLOOD GAS O2 HGB SATURATION 95 % (90-100); BLOOD GAS OXYGEN CONTENT 15.8 Vol % (12.0-20.0); BLOOD GAS PCO2 35 mmHG (38-42); BLOOD GAS PO2 105 mmHG (61-120); BLOOD GAS TOTAL HGB 11.8 G/DL (12.0-16.0); CRITICAL VALUE NO; DRAW SITE RT RADIAL; FIO2 21 %; NUMBER OF ARTERIAL PUNCTURES 1; STAT NO; TEMP CORR TO 98.6; ULNAR PULSE PRESENT
--- NOTE | 2017-05-07 10:14 | RSPPFT ---
DATE OF PROCEDURE: 05/05/17 COMMENTS: Spirometry sows FVC of 3.1 at 62% of predicted, FEV1 of 1.7 at 46%, FEV1/FVC ratio is decreased. Flow is decreased at FEF 25, FEF 50, FEF 75, FEF 25-75. There is no significant response after bronchodilator treatment. Lung volumes show residual volume is normal. TLC is normal. Diffusion capacity was not done. Blood gases show pH of 7.42, PCO2 of 35, PO2 of 105, BiCarb of 22 and O2 Saturation at 95%. Flow volume loop indicates an obstructive pattern. IMPRESSION: 1. Moderately severe obstructive lung disease. 2. No response after bronchodilator treatment. 3. Lung volume are normal. 4. Room air arterial blood gases show normal oxygenation.
== END ==
LOC: PHRSP 09:15
PROVIDERS: ATTEND Specialist
DX: J44.9 Chronic obstructive pulmonary disease, unspecified (principal)
CPT/HCPCS: 36600; 82805; 94060; 94620; 94726

== ENCOUNTER 2017-06-14 18:14 | Emergency (ER) | payer MEDICARE, MEDICAID ==
[~2017-06-14] VITALS: Ht 177.8 cm; Wt 124.0 kg
[2017-06-14 18:30] VITALS: BP 121/72; PULSE 63; RESP 16; TEMP 98.7; O2SAT 99
--- NOTE | 2017-06-14 19:36 | PD ---
HPI Chief Complaint: Chest Pain Time Seen by Provider: 19:11 Travel History International Travel<30 days: No Contact w/Intl Traveler<30days: No Traveled to known affect area: No History of Present Illness HPI 61-year-old female complains of neck pain and chest pain and pain in the lower extremity. Patient states that she started having aching pain and sharp pain to her neck and left chest area about 4 hours prior to arrival. Patient denies palpitation nausea or diaphoresis. Patient denies any coughing congestion fever chills. Patient complain generalized malaise. Patient states that she has increasing pain to bilateral lower extremity including the hip and knees and she has a lot of pain with bearing lower extremity. Patient denies any recent fall. Patient has history hypertension, hyperlipidemia. Patient is a nonsmoker. Patient has family history heart disease. Patient denies history of diabetes. Patient had a stress test done by Dr. Loya, her yarding engineer about a month and a half ago and was normal. Patient has history of COPD. Patient also has history of precancer esophagus and has been seen by GI specialist. PFSH Past Medical History Hx Anticoagulant Therapy: Yes (325 ASA DAILY) Asthma: Yes Anxiety: Yes Cancer: Yes (melanoma) Cardiac Catheterization: Yes Cardiovascular Problems: Yes High Cholesterol: Yes Chemotherapy: Yes (2 YRS AGO) Chest Pain: Yes COPD: Yes Cerebrovascular Accident: Yes (CVA) Diabetes: No Diminished Hearing: No GERD: Yes Hypertension: Yes Respiratory: Yes Immunizations Current: Yes Menopausal: Yes : 1 Para: 1 Ovarian Cysts: Yes Past Surgical History Abdominal Surgery: Yes (EXPLOR. LAP FOR REMOVAL OF FB ) Gynecologic Surgery: Yes (CYST REMOVED LEFT SIDE) Hysterectomy: Yes Other Surgery: Yes (CANCER MELANOMA REMOVAL LEFT ARM) Social History Alcohol Use: No Tobacco Use: No Substance Use: No Allergies-Medications (Allergen,Severity, Reaction): Coded Allergies: ciprofloxacin (Unverified Allergy, Severe, TONGUE SWELLING, 06/14/17) Reported Meds & Prescriptions Reported Meds & Active Scripts Active Reported Gemfibrozil 600 Mg Tab 600 Mg PO BIDAC Take 30 minutes prior to breakfast and dinner. Lovastatin 40 Mg Tab 40 Mg PO DAILY Lisinopril 40 Mg Tab 40 Mg PO DAILY Esomeprazole DR 40 Mg Capdr 40 Mg PO DAILY Proair Hfa 8.5 GM Inh (Albuterol Sulfate) 90 Mcg/Act Aer 2 Puff INH Q4-6H PRN 108 mcg/actuation Albuterol Neb (Albuterol Sulfate) 2.5 Mg/0.5 Ml Neb 2.5 Mg NEB Q6HR NEB Note: The Albuterol Sulfate Inhalation Solution is concentrated and must be diluted. Read complete instructions carefully before using. Review of Systems General / Constitutional: No: Fever Eyes: No: Visual changes HENT: Positive: Neck Pain, No: Headaches Cardiovascular: Positive: Chest Pain or Discomfort Respiratory: No: Shortness of Breath Gastrointestinal: No: Abdominal Pain Genitourinary: No: Dysuria Musculoskeletal: Positive: Pain Skin: No Rash Neurologic: No: Weakness Psychiatric: No: Depression Endocrine: No: Polydipsia Hematologic/Lymphatic: No: Easy Bruising Physical Exam Narrative GENERAL: Well-nourished, well-developed patient. SKIN: Focused skin assessment warm/dry. HEAD: Normocephalic. EYES: No scleral icterus. No injection or drainage. NECK: Supple, trachea midline. No JVD or lymphadenopathy. CARDIOVASCULAR: Regular rate and rhythm without murmurs, gallops, or rubs. RESPIRATORY: Breath sounds equal bilaterally. No accessory muscle use. GASTROINTESTINAL: Abdomen soft, non-tender, nondistended. MUSCULOSKELETAL: No cyanosis, or edema. Patient had diffuse tenderness over the bilateral knee joint. Limited range of motion of the knee. Knee joints stable. No effusion noted. BACK: Nontender without obvious deformity. No CVA tenderness. Neurologic exam normal. Data Data Last Documented VS Vital Signs Date Time Temp Pulse Resp B/P (MAP) Pulse Ox O2 Delivery O2 Flow Rate FiO2 06/14/17 19:40 97 06/14/17 18:30 98.7 63 16 121/72 (88) Orders Orders Electrocardiogram (06/14/17 19:29) Complete Blood Count With Diff (06/14/17 19:29) Comprehensive Metabolic Panel (06/14/17 19:29) Creatine Kinase (Cpk) (06/14/17 19:29) Troponin I (06/14/17 19:29) B-Type Natriuretic Peptide (06/14/17 19:29) Prothrombin Time / Inr (Pt) (06/14/17 19:29) Act Partial Throm Time (Ptt) (06/14/17 19:29) Urinalysis - C+S If Indicated (06/14/17 19:29) Thyroid Stimulating Hormone (06/14/17 19:29) Chest, Single Ap (06/14/17 19:29) Iv Access Insert/Monitor (06/14/17 19:29) Ecg Monitoring (06/14/17 19:29) Oximetry (06/14/17 19:29) Labs Laboratory Tests Test 06/14/17 19:40 06/14/17 20:15 White Blood Count 8.9 TH/MM3 Red Blood Count 4.01 MIL/MM3 Hemoglobin 11.7 GM/DL Hematocrit 35.0 % Mean Corpuscular Volume 87.2 FL Mean Corpuscular Hemoglobin 29.2 PG Mean Corpuscular Hemoglobin Concent 33.5 % Red Cell Distribution Width 12.1 % Platelet Count 293 TH/MM3 Mean Platelet Volume 10.5 FL Neutrophils (%) (Auto) 65.8 % Lymphocytes (%) (Auto) 26.0 % Monocytes (%) (Auto) 6.3 % Eosinophils (%) (Auto) 1.2 % Basophils (%) (Auto) 0.7 % Neutrophils # (Auto) 5.8 TH/MM3 Lymphocytes # (Auto) 2.3 TH/MM3 Monocytes # (Auto) 0.6 TH/MM3 Eosinophils # (Auto) 0.1 TH/MM3 Basophils # (Auto) 0.1 TH/MM3 CBC Comment DIFF FINAL Differential Comment Prothrombin Time 10.4 SEC Prothromb Time International Ratio 0.9 RATIO Activated Partial Thromboplast Time 25.7 SEC Blood Urea Nitrogen 21 MG/DL Creatinine 1.40 MG/DL Random Glucose 99 MG/DL Total Protein 6.7 GM/DL Albumin 3.6 GM/DL Calcium Level 8.6 MG/DL Alkaline Phosphatase 69 U/L Aspartate Amino Transf (AST/SGOT) 14 U/L Alanine Aminotransferase (ALT/SGPT) 17 U/L Total Bilirubin 0.1 MG/DL Sodium Level 139 MEQ/L Potassium Level 4.1 MEQ/L Chloride Level 105 MEQ/L Carbon Dioxide Level 25.2 MEQ/L Anion Gap 9 MEQ/L Estimat Glomerular Filtration Rate 38 ML/MIN Total Creatine Kinase 74 U/L Troponin I LESS THAN 0.02 NG/ML B-Type Natriuretic Peptide 111 PG/ML Thyroid Stimulating Hormone 3rd Gen 1.660 uIU/ML Urine Color YELLOW Urine Turbidity CLEAR Urine pH 6.0 Urine Specific [place] 1.010 Urine Protein NEG mg/dL Urine Glucose (UA) NEG mg/dL Urine Ketones NEG mg/dL Urine Occult Blood NEG Urine Nitrite NEG Urine Bilirubin NEG Urine Leukocyte Esterase TRACE Urine RBC 0-2 /hpf Urine WBC 6-8 /hpf Urine Squamous Epithelial Cells 0-5 /hpf Urine Bacteria OCC /hpf Microscopic Urinalysis Comment CULT NOT INDICATED MDM Medical Decision Making Medical Screen Exam Complete: Yes Emergency Medical Condition: Yes Interpretation(s) EKG shows sinus rhythm nonspecific ST-T wave change. Last Impressions Chest X-Ray 06/14/[id number] Signed Impressions: Service Date/Time: Wednesday, June 14, 2017 19:32 - CONCLUSION: No evidence of acute cardiopulmonary disease. Junior Cee MD 2035 PM. CBC within normal limit. BUN 21. Creatinine 1.40. Cardiac enzymes are normal. BNP 111. UA positive for few WBC occasional bacteria. Differential Diagnosis Differential diagnosis including musculoskeletal, angina, FL, PE, pneumothorax. Narrative Course 61-year-old female with neck pain, left sided chest pain. Patient also complains of of lower extremity pain. I spoke with Dr. Tsai, covering for Dr. Loya. Advised repeat cardiac enzymes in 4 hours. I spoke with patient and patient refused further tests. Patient wants to go home now. Diagnosis Primary Impression: Chest pain Qualified Codes: R07.9 - Chest pain, unspecified Additional Impression: Arthralgia of lower leg Qualified Codes: M25.561 - Pain in right knee; M25.562 - Pain in left knee Patient Instructions: General Instructions Additional Instructions: Continue all medications. Follow-up with personal physician and yarding engineer. Return if worse. Med/Other Pt SpecificInfo: No Change to Meds Disposition: 01 DISCHARGE HOME Condition: Stable Daniel Shelton MD Jun 14, 2017 19:36
[2017-06-14 19:40] VITALS: O2SAT 97
[2017-06-14 19:53] LABS: AUTOMATED NEUTROPHIL # 5.8 TH/MM3 (1.8-7.7); BASOPHIL # 0.1 TH/MM3 (0-0.2); BASOPHIL % 0.7 % (0.0-2.0); EOSINOPHIL # 0.1 TH/MM3 (0-0.4); EOSINOPHIL % 1.2 % (0.0-4.0); HEMO FLAGS DIFF FINAL; LYMPHOCYTE # 2.3 TH/MM3 (1.0-4.8); MEAN CELL VOLUME 87.2 FL (80.0-100.0); MEAN CORPUSCULAR HEMOGLOBIN 29.2 PG (27.0-34.0); MEAN CORPUSCULAR HGB CONC 33.5 % (32.0-36.0); MONO % 6.3 % (0.0-8.0); NEUT % 65.8 % (16.0-70.0); PLATELET COUNT 293 TH/MM3 (150-450); RED BLOOD COUNT 4.01 MIL/MM3 (4.00-5.30); RED CELL DISTRIBUTION WIDTH 12.1 % (11.6-17.2); WHITE BLOOD COUNT 8.9 TH/MM3 (4.0-11.0)
--- NOTE | 2017-06-14 19:57 | RADRPT ---
EXAM DATE/TIME: 06/14/2017 19:32 [facility] COMPARISON: CHEST SINGLE AP, March 11, 2017, 10:57. INDICATIONS : Shortness of breath. MEDICAL HISTORY : Hypercholesterolemia. Hypertension Chronic obstructive pulmonary disease. SURGICAL HISTORY : Hysterectomy. Cardia cath. ENCOUNTER: Initial ACUITY: 1 day PAIN SCORE: 0/10 LOCATION: Bilateral chest FINDINGS: A single view of the chest demonstrates the lungs to be symmetrically aerated without evidence of mas s, infiltrate or effusion. The cardiomediastinal contours are unremarkable. Osseous structures are intact. CONCLUSION: No evidence of acute cardiopulmonary disease. Junior Cee MD on June 14, 2017 at 19:56 Board Certified Radiologist. This report was verified electronically.
[2017-06-14 20:04] LABS: CHLORIDE 105 MEQ/L (98-107); POTASSIUM 4.1 MEQ/L (3.5-5.1); SODIUM (NA) 139 MEQ/L (136-145)
[2017-06-14 20:08] LABS: ANION GAP 9 MEQ/L (5-15); BICARBONATE 25.2 MEQ/L (21.0-32.0); BLOOD UREA NITROGEN 21 MG/DL (7-18)
[2017-06-14 20:09] LABS: APTT (PATIENT) 25.7 SEC (24.3-30.1); INTERNATIONAL NORMALIZED RATIO 0.9 RATIO; PROTHROMBIN TIME - PATIENT 10.4 SEC (9.8-11.6)
[2017-06-14 20:11] LABS: ALT (GPT) 17 U/L (10-53); AST (GOT) 14 U/L (15-37); GLOMERULAR FILTRATION RATE 38 ML/MIN (>89)
[2017-06-14 20:12] LABS: TOTAL BILIRUBIN ADULT 0.1 MG/DL (0.2-1.0)
[2017-06-14 20:14] LABS: ALKALINE PHOSPHATASE 69 U/L (45-117)
[2017-06-14 20:18] LABS: CREATINE KINASE 74 U/L (26-192)
[2017-06-14 20:26] LABS: BLOOD, URINE NEG (NEG); GLUCOSE,URINE NEG (NEG); KETONE, URINE NEG (NEG); NITRITE,URINE NEG (NEG)
[2017-06-14 20:29] LABS: URINE COLOR YELLOW (YELLW/STRAW)
[2017-06-14 20:30] VITALS: BP 148/78; PULSE 65; RESP 18; O2SAT 97
[2017-06-14 20:30] LABS: BACTERIA, URINE OCC /hpf; COMMENT (UR) CULT NOT INDICATED; CULTURE IF INDICATED CULT NOT INDICATED; RBC, URINE 0-2 /hpf (0-3); SQUAMOUS EPITHELIAL CELL URINE 0-5 /hpf (0-5)
[2017-06-14 21:28] VITALS: BP 152/83; PULSE 62; RESP 18; O2SAT 97
--- NOTE | 2017-06-15 12:54 | EKG ---
Date Performed: 06/14/2017 Time Performed: 18:25:19 PTAGE: 61 years EKG: Sinus rhythm NORMAL ECG PREVIOUS TRACING : 10/31/2016 23.28 No significant change from previous tracing noted. DOCTOR: Oliver Gorman Interpretating Date/Time 06/15/2017 12:52:36
== END 2017-06-14 21:32 | disposition home or self-care (01) ==
LOC: PHED 18:14
DX: R07.9 Chest pain, unspecified (principal); M25.561 Pain in right knee; E78.00 Pure hypercholesterolemia, unspecified; I10 Essential (primary) hypertension; J44.9 Chronic obstructive pulmonary disease, unspecified; Z86.73 Personal history of transient ischemic attack (TIA), and cerebral infarction without residual deficits; Z85.820 Personal history of malignant melanoma of skin
CPT/HCPCS: 71010; 80053; 81001; 82550; 83880; 84443; 84484; 85025; 85610; 85730; 93005

== ENCOUNTER 2018-02-09 15:04 | Emergency (ER) | payer MEDICAID, MEDICARE ==
[~2018-02-09] VITALS: Ht 179.1 cm; Wt 124.8 kg
[~2018-02-09 15:04] MED LIST changes: -CARV12.52 PO; -ROBA750T PO
[2018-02-09 15:09] VITALS: BP 184/101; PULSE 73; RESP 16; TEMP 97.7; O2SAT 98
[2018-02-09 15:45] VITALS: O2SAT 98
--- NOTE | 2018-02-09 15:50 | PD ---
HPI Chief Complaint: Dizziness Time Seen by Provider: 15:24 Travel History International Travel<30 days: No Contact w/Intl Traveler<30days: No Traveled to known affect area: No History of Present Illness HPI 62-year-old female complains of generalized malaise and weakness and dizziness and headache and sweating and ear ringing. Patient states that she still has intermittent ear ringing for the past few months. Patient has been seen by personal physician for the ear ringing. Patient was awaiting referral for ENT. Patient states that the ear ringing is worse for the past 2 weeks. Patient was going shopping today. Patient started having dizziness and generalized malaise and weakness around 12 noon. Patient states that she started having sweating and headache and ear ringing. Patient states that her blood pressure was elevated at that time. Patient went home and recheck her blood pressure was 165/80. Patient started feeling better after she laid out. Patient states that the headache and earache is better now. Patient states that she has increasing leg swelling for the past week. Patient denies any chest pain or shortness of breath. Patient denies abdominal pain. Patient denies any nausea vomiting diarrhea. Patient denies dysuria frequency. Patient denies any vaginal discharge or bleeding. Chronic intermittent joint pain patient complains of. Patient states that he noticed increasing leg swelling for the past week. Patient denies history of DVT or PE. Patient has history of hypertension, hyperlipidemia, and COPD. 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 PFSH Past Medical History Hx Anticoagulant Therapy: Yes (asa 81mg) Asthma: Yes Anxiety: Yes Cancer: Yes (melanoma) Cardiac Catheterization: Yes Cardiovascular Problems: Yes (htn on meds) High Cholesterol: Yes Chemotherapy: Yes (2 YRS AGO) Chest Pain: Yes COPD: Yes Cerebrovascular Accident: Yes (cva) Diabetes: No Diminished Hearing: No GERD: Yes Hypertension: Yes Respiratory: Yes (copd) Immunizations Current: Yes Tetanus Vaccination: < 5 Years Influenza Vaccination: Yes ?: Not Menopausal: Yes : 1 Para: 1 Ovarian Cysts: Yes Past Surgical History Abdominal Surgery: Yes (EXPLOR. LAP FOR REMOVAL OF FB ) Gynecologic Surgery: Yes (CYST REMOVED LEFT SIDE) Hysterectomy: Yes Other Surgery: Yes (CANCER MELANOMA REMOVAL LEFT ARM) Social History Alcohol Use: No Tobacco Use: No Substance Use: No Allergies-Medications (Allergen,Severity, Reaction): Coded Allergies: ciprofloxacin (Unverified Allergy, Severe, TONGUE SWELLING, 02/09/18) Reported Meds & Prescriptions Reported Meds & Active Scripts Active Reported Lovastatin 40 Mg Tab 40 Mg PO DAILY Lisinopril 40 Mg Tab 40 Mg PO DAILY Esomeprazole DR 40 Mg Capdr 40 Mg PO DAILY Review of Systems General / Constitutional: No: Fever Eyes: No: Visual changes HENT: Positive: Headaches, Lightheadedness Cardiovascular: No: Chest Pain or Discomfort Respiratory: No: Shortness of Breath Gastrointestinal: No: Abdominal Pain Genitourinary: No: Dysuria Musculoskeletal: No: Pain Skin: No Rash Neurologic: No: Weakness Psychiatric: No: Depression Endocrine: No: Polydipsia Hematologic/Lymphatic: No: Easy Bruising Physical Exam Narrative GENERAL: Well-nourished, well-developed patient. SKIN: Focused skin assessment warm/dry. HEAD: Normocephalic. EYES: No scleral icterus. No injection or drainage. NECK: Supple, trachea midline. No JVD or lymphadenopathy. CARDIOVASCULAR: Regular rate and rhythm without murmurs, gallops, or rubs. RESPIRATORY: Breath sounds equal bilaterally. No accessory muscle use. GASTROINTESTINAL: Abdomen soft, non-tender, nondistended. MUSCULOSKELETAL: No cyanosis, or edema. BACK: Nontender without obvious deformity. No CVA tenderness. Neurologic exam: Patient is awake and alert oriented 3. No obvious focal neurological deficit. Data Data Last Documented VS Vital Signs Date Time Temp Pulse Resp B/P (MAP) Pulse Ox O2 Delivery O2 Flow Rate FiO2 02/09/18 15:45 98 Room Air 02/09/18 15:09 97.7 73 16 184/101 (128) Orders Orders Electrocardiogram (02/09/18 15:36) Complete Blood Count With Diff (02/09/18 15:36) Comprehensive Metabolic Panel (02/09/18 15:36) Creatine Kinase (Cpk) (02/09/18 15:36) Troponin I (02/09/18 15:36) B-Type Natriuretic Peptide (02/09/18 15:36) Prothrombin Time / Inr (Pt) (02/09/18 15:36) Act Partial Throm Time (Ptt) (02/09/18 15:36) Urinalysis - C+S If Indicated (02/09/18 15:36) Thyroid Stimulating Hormone (02/09/18 15:36) Chest, Single Ap (02/09/18 15:36) Ct Brain W/O Iv Contrast(Rout) (02/09/18 15:36) Iv Access Insert/Monitor (02/09/18 15:36) Ecg Monitoring (02/09/18 15:36) Oximetry (02/09/18 15:36) Urine Culture (02/09/18 15:40) Labs Laboratory Tests Test 02/09/18 15:40 02/09/18 15:45 Urine Collection Type CLEAN CATCH Urine Color YELLOW Urine Turbidity CLEAR Urine pH 6.0 Urine Specific [place] 1.015 Urine Protein NEG mg/dL Urine Glucose (UA) NEG mg/dL Urine Ketones NEG mg/dL Urine Occult Blood NEG Urine Nitrite NEG Urine Bilirubin NEG Urine Urobilinogen 0.2 MG/DL Urine Leukocyte Esterase SMALL Urine RBC 0-3 /hpf Urine WBC 9-14 /hpf Urine Squamous Epithelial Cells 0-5 /hpf Microscopic Urinalysis Comment CULTURE INDICATED Urine Collection Time 15:40 White Blood Count 11.4 TH/MM3 Red Blood Count 4.01 MIL/MM3 Hemoglobin 12.0 GM/DL Hematocrit 35.2 % Mean Corpuscular Volume 87.7 FL Mean Corpuscular Hemoglobin 29.9 PG Mean Corpuscular Hemoglobin Concent 34.1 % Red Cell Distribution Width 12.9 % Platelet Count 273 TH/MM3 Mean Platelet Volume 10.8 FL Neutrophils (%) (Auto) 73.4 % Lymphocytes (%) (Auto) 19.1 % Monocytes (%) (Auto) 5.4 % Eosinophils (%) (Auto) 1.0 % Basophils (%) (Auto) 1.1 % Neutrophils # (Auto) 8.4 TH/MM3 Lymphocytes # (Auto) 2.2 TH/MM3 Monocytes # (Auto) 0.6 TH/MM3 Eosinophils # (Auto) 0.1 TH/MM3 Basophils # (Auto) 0.1 TH/MM3 CBC Comment DIFF FINAL Differential Comment Prothrombin Time 10.8 SEC Prothromb Time International Ratio 1.1 RATIO Activated Partial Thromboplast Time 28.6 SEC Blood Urea Nitrogen 18 MG/DL Creatinine 0.70 MG/DL Random Glucose 74 MG/DL Total Protein 6.6 GM/DL Albumin 3.3 GM/DL Calcium Level 8.8 MG/DL Alkaline Phosphatase 74 U/L Aspartate Amino Transf (AST/SGOT) 14 U/L Alanine Aminotransferase (ALT/SGPT) 24 U/L Total Bilirubin 0.3 MG/DL Sodium Level 141 MEQ/L Potassium Level 3.7 MEQ/L Chloride Level 109 MEQ/L Carbon Dioxide Level 24.5 MEQ/L Anion Gap 8 MEQ/L Estimat Glomerular Filtration Rate 84 ML/MIN Total Creatine Kinase 71 U/L Troponin I LESS THAN 0.02 NG/ML B-Type Natriuretic Peptide 138 PG/ML Thyroid Stimulating Hormone 3rd Gen 1.000 uIU/ML MDM Medical Decision Making Medical Screen Exam Complete: Yes Emergency Medical Condition: Yes Interpretation(s) 1642 PM. CBC WBC 11.4. 73 neutrophil. CMP within normal limits. Cardiac enzymes are normal. BNP 138. UA positive for WBC. 1707 p.m. Last Impressions Head CT 02/09/18 1536 Signed Impressions: Service Date/Time: Friday, February 09, 2018 16:17 - CONCLUSION: 1. No acute intracranial abnormality. Yousuf Bennett MD Chest X-Ray 02/09/181535 Signed Impressions: Service Date/Time: Friday, February 09, 2018 15:43 - CONCLUSION: 1. Chronic interstitial changes. No acute abnormality. Ernie Minaya MD Differential Diagnosis Differential diagnosis including viral syndrome, electrolyte imbalance, tension headache, cluster headache, migraine headache, vertigo, Mnire's disease. Narrative Course 62-year-old female with ear ringing, dizziness, general malaise and weakness. Patient had transient elevated blood pressure. Patient has history of hypertension. Diagnosis Primary Impression: UTI (urinary tract infection) Qualified Codes: N30.00 - Acute cystitis without hematuria Additional Impression: Viral syndrome Patient Instructions: General Instructions Additional Instructions: Bactrim DS as directed. Continue with all medication. Follow-up with personal physician. Return if worse. Tylenol for headache. Med/Other Pt SpecificInfo: Prescription(s) given Scripts Sulfamethoxazole-Trimethoprim (Bactrim DS) 800-160 Mg Tab 1 TAB PO BID for Infection, #6 TAB 0 Refills Prov: Daniel Shelton MD 02/09/18 Disposition: 01 DISCHARGE HOME Condition: Stable Daniel Shelton MD February 09, 2018 15:50
[2018-02-09 16:02] LABS: BILIRUBIN, URINE NEG (NEG); BLOOD, URINE NEG (NEG); GLUCOSE,URINE NEG (NEG); KETONE, URINE NEG (NEG); NITRITE,URINE NEG (NEG); URINE COLOR YELLOW (YELLW/STRAW); URINE LEUKOCYTE ESTERASE SMALL (NEG)
--- NOTE | 2018-02-09 16:02 | RADRPT ---
EXAM DATE/TIME: 02/09/2018 15:43 [facility] COMPARISON: CHEST SINGLE AP, June 14, 2017, 19:32. INDICATIONS : Shortness of breath. MEDICAL HISTORY : Hypertension. Chronic obstructive pulmonary disease. Hypercholesterolemia. SURGICAL HISTORY : Cardiac cath. ENCOUNTER: Initial ACUITY: 1 day PAIN SCORE: 0/10 LOCATION: Bilateral chest FINDINGS: The heart is normal in size. There chronic interstitial changes. Lungs are otherwise clear. There is no pleural effusion. Visualized bony structures are grossly intact. The exam is similar previous to t he prior dated 06/14/17 CONCLUSION: 1. Chronic interstitial changes. No acute abnormality. Ernie Minaya MD on February 09, 2018 at 15:58 Board Certified Radiologist. This report was verified electronically.
[2018-02-09 16:03] LABS: AUTOMATED NEUTROPHIL # 8.4 TH/MM3 (1.8-7.7); BASOPHIL # 0.1 TH/MM3 (0-0.2); BASOPHIL % 1.1 % (0.0-2.0); EOSINOPHIL # 0.1 TH/MM3 (0-0.4); HEMATOCRIT 35.2 % (35.0-46.0); LYMPH % 19.1 % (9.0-44.0); LYMPHOCYTE # 2.2 TH/MM3 (1.0-4.8); MEAN CELL VOLUME 87.7 FL (80.0-100.0); MEAN CORPUSCULAR HEMOGLOBIN 29.9 PG (27.0-34.0); MEAN CORPUSCULAR HGB CONC 34.1 % (32.0-36.0); MEAN PLATELET VOLUME 10.8 FL (7.0-11.0); MONO % 5.4 % (0.0-8.0); MONOCYTE # 0.6 TH/MM3 (0-0.9); NEUT % 73.4 % (16.0-70.0); PLATELET COUNT 273 TH/MM3 (150-450); RED BLOOD COUNT 4.01 MIL/MM3 (4.00-5.30); RED CELL DISTRIBUTION WIDTH 12.9 % (11.6-17.2); WHITE BLOOD COUNT 11.4 TH/MM3 (4.0-11.0)
[2018-02-09 16:09] LABS: CHLORIDE 109 MEQ/L (98-107); SODIUM (NA) 141 MEQ/L (136-145)
[2018-02-09 16:12] LABS: RBC, URINE 0-3 /hpf (0-3); SQUAMOUS EPITHELIAL CELL URINE 0-5 /hpf (0-5)
[2018-02-09 16:15] LABS: CALCIUM 8.8 MG/DL (8.5-10.1); INTERNATIONAL NORMALIZED RATIO 1.1 RATIO; PROTHROMBIN TIME - PATIENT 10.8 SEC (9.8-11.6)
[2018-02-09 16:16] LABS: ALBUMIN 3.3 GM/DL (3.4-5.0); BICARBONATE 24.5 MEQ/L (21.0-32.0); BLOOD UREA NITROGEN 18 MG/DL (7-18); GLUCOSE,RANDOM 74 MG/DL (74-106)
[2018-02-09 16:19] LABS: ALT (GPT) 24 U/L (10-53); AST (GOT) 14 U/L (15-37); GLOMERULAR FILTRATION RATE 84 ML/MIN (>89)
[2018-02-09 16:20] LABS: TOTAL BILIRUBIN ADULT 0.3 MG/DL (0.2-1.0); TOTAL PROTEIN 6.6 GM/DL (6.4-8.2)
[2018-02-09 16:22] LABS: ALKALINE PHOSPHATASE 74 U/L (45-117)
[2018-02-09 16:24] LABS: TROPONIN I LESS THAN 0.02 NG/ML (0.02-0.05)
--- NOTE | 2018-02-09 16:57 | RADRPT ---
EXAM DATE/TIME: 02/09/2018 16:17 [facility] COMPARISON: No previous studies available for comparison. INDICATIONS : Dizziness, headache, and generalized weakness. RADIATION DOSE: 51.21 CTDIvol (mGy) MEDICAL HISTORY : Hypertension. Chronic obstructive pulmonary disease. Anticoagulant therapy. SURGICAL HISTORY : Hysterectomy. ENCOUNTER: Initial ACUITY: 1 day PAIN SCALE: 4/10 LOCATION: cranial TECHNIQUE: Multiple contiguous axial images were obtained of the head. Using automated exposure control and adj ustment of the mA and/or kV according to patient size, radiation dose was kept as low as reasonably a chievable to obtain optimal diagnostic quality images. DICOM format image data is available electro nically for review and comparison. FINDINGS: CEREBRUM: The ventricles are normal for age. No evidence of midline shift, mass lesion, hemorrhage or acute in farction. No extra-axial fluid collections are seen. POSTERIOR FOSSA: The cerebellum and brainstem are intact. The 4th ventricle is midline. The cerebellopontine angle i s unremarkable. EXTRACRANIAL: The visualized portion of the orbits is intact. SKULL: The calvaria is intact. No evidence of skull fracture. CONCLUSION: 1. No acute intracranial abnormality. Yousuf Bennett MD on February 09, 2018 at 16:28 Board Certified Radiologist. This report was verified electronically.
[2018-02-09] MEDS ORDERED: BACT800T5 PO (17:11)
[2018-02-09 17:15] VITALS: BP 159/71; PULSE 82; RESP 18; O2SAT 98
--- NOTE | 2018-02-10 09:37 | EKG ---
Date Performed: 02/09/2018 Time Performed: 16:01:58 PTAGE: 62 years EKG: Sinus rhythm NORMAL ECG Since the PREVIOUS TRACING , no significant change noted PREVIOUS TRACIN06/14/2017 18.25 DOCTOR: Anabel Bull Interpretating Date/Time 02/10/2018 09:37:24
== END 2018-02-09 17:19 | disposition home or self-care (01) ==
LOC: PHED 15:04
DX: N39.0 Urinary tract infection, site not specified (principal); B34.9 Viral infection, unspecified; I10 Essential (primary) hypertension; J45.909 Unspecified asthma, uncomplicated; F41.9 Anxiety disorder, unspecified; J44.9 Chronic obstructive pulmonary disease, unspecified; K21.9 Gastro-esophageal reflux disease without esophagitis; E78.00 Pure hypercholesterolemia, unspecified; Z86.73 Personal history of transient ischemic attack (TIA), and cerebral infarction without residual deficits
CPT/HCPCS: 70450; 71045; 80053; 81001; 82550; 83880; 84443; 84484; 85025; 85610; 85730; 87086; 93005; 99285

== ENCOUNTER 2018-06-15 17:41 | Observation (INO) ==
[2018-06-15 18:32] LABS: Baso # (Auto) 0.1 th/mm3 (0.0-0.2); Baso % (Auto) 0.4 % (0.0-2.0); Eos % (Auto) 0.2 % (0.0-4.0); Hemoglobin 12.8 gm/dL (11.6-15.3); Lymph # (Auto) 1.5 th/mm3 (1.0-4.8); Mean Corpuscular HGB Conc 33.6 % (32.0-36.0); Mean Corpuscular Hemoglobin 29.5 pg (27.0-34.0); Mean Corpuscular Volume 87.9 fL (80.0-100.0); Mean Platelet Volume 10.8 fL (7.0-11.0); Mono # (Auto) 0.4 th/mm3 (0.0-0.9); Mono % (Auto) 2.9 % (0.0-8.0); Neut % (Auto) 85.5 % (16.0-70.0); Platelet Count 275 th/mm3 (150-450); Red Blood Count 4.33 mil/mm3 (4.00-5.30)
[2018-06-15 18:39] LABS: Chloride 106 meq/L (98-107); Potassium 3.4 meq/L (3.5-5.1); Sodium 140 meq/L (136-145)
[2018-06-15 18:43] LABS: Albumin 3.8 g/dL (3.4-5.0); Anion Gap 13 meq/L (5-15); Blood Urea Nitrogen 32 mg/dL (7-18); Calcium 8.1 mg/dL (8.5-10.1); Carbon Dioxide 21.3 meq/L (21.0-32.0); Glucose,Random 133 mg/dL (74-106)
[2018-06-15 18:46] LABS: Alanine Aminotransferase 31 U/L (10-53); Aspartate Aminotransferase 17 U/L (15-37); Glomerular Filtration Rate 45 mL/min (>89)
--- NOTE | 2018-06-15 18:48 | XR ---
EXAM DATE: 06/15/2018 6:34 PM EDT AGE/SEX: 62 years / Female INDICATIONS: . Chest pain, dizziness. CLINICAL DATA: This is the patient's initial encounter. Patient reports that signs and symptoms have been present for 1 day and indicates a pain score of 4/10. MEDICAL/SURGICAL HISTORY: Chronic obstructive pulmonary disease. None. COMPARISON: [facility], CHEST SINGLE AP, 02/09/2018. . FINDINGS: PA and lateral views of the chest demonstrate the lungs to be symmetrically aerated without evidence of mass, infiltrate or effusion. The cardiomediastinal contours are unremarkable. Osseous structures are intact. CONCLUSION: No acute findings. Tortuous aorta. Electronically signed by: Jeevan Liz MD 06/15/2018 6:46 PM EDT
[2018-06-15 18:49] LABS: Alkaline Phosphatase 64 U/L (45-117)
--- NOTE | 2018-06-15 19:23 | ED ---
HPI General Chief Complaint: Chest Pain Stated Complaint: heart fluttering/neck pain/dizzy Time Seen by Provider: 06/15/18 18:03 Source: patient Mode of arrival: ambulatory Limitations: no limitations History of Present Illness HPI narrative: Patient is a 62-year-old female, past medical history significant for hypertension, hyperlipidemia, COPD, previous melanoma with no recent chemo nor radiation, who presents with complaint of chest heaviness that has been intermittent throughout the day with radiation to the neck. She is not sure what brings it on but it does resolve on its own after several minutes. She does have associated palpitations and dyspnea as well. No leg swelling or immobilization. This has not happened before. She states that earlier today when it occurred she did also have some lightheadedness and felt like she needed to lie down. It did resolve on its own. complaint: chest pain STEMI Alert: No Onset (ago): minute(s) Duration: intermittent Onset: during rest Pain location: substernal Severity: moderate Quality: heaviness Pain radiation: neck Relieving factors: nothing Exacerbating factors: nothing Associated symptoms: palpitations Treatments prior to arrival chest pain: none Related Data On Oral Contraceptives: No Home Medications Medication Instructions Recorded Confirmed albuterol sulfate 2.5 mg INHALATION BID 06/15/18 06/15/18 albuterol sulfate 2.5 mg INHALATION DAILY 06/15/18 06/15/18 levothyroxine 50 mcg PO DAILY 06/15/18 06/15/18 lisinopril 40 mg PO DAILY 06/15/18 06/15/18 lovastatin 40 mg PO DAILY 06/15/18 06/15/18 tramadol 50 mg PO DAILY PRN 06/15/18 06/15/18 Allergies Allergy/AdvReac Type Severity Reaction Status Date / Time ciprofloxacin Allergy Severe TONGUE Verified 06/15/18 18:49 SWELLING Review of Systems ROS: all other systems reviewed are negative FOR[facility]LY [facility], [facility] Medical History Medical History 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) H/O: hysterectomy (Acute) High cholesterol (Acute) Hypertension (Acute) Hypothyroid (Acute) Melanoma (Acute) Social History Social History Substance History: No History of Abuse Second Hand Smoke Exposure: No Smoking Status: Former smoker Tobacco Type: Cigarettes How Often Do You Have a Drink Containing Alcohol: Never Recent Travel in [facility] within the Last 8 Weeks: No Recent Out of Country Travel within the Last 8 Weeks: No Immunization History Tetanus Immunization: <5 Years Hx Influenza Vaccine This Season: Yes Exam Narrative Exam Narrative: GENERAL: Well appearing female in no acute distress SKIN: Focused skin assessment warm/dry. No rashes. HEAD: Atraumatic. Normocephalic. EYES: Pupils equal and round. No scleral icterus. No injection or drainage. ENT: No nasal bleeding or discharge. Mucous membranes pink and moist. NECK: Trachea midline. No JVD. CARDIOVASCULAR: Regular rate and rhythm. No murmur appreciated. Intact and equal peripheral pulses. RESPIRATORY: No accessory muscle use. Clear to auscultation. Breath sounds equal bilaterally. GASTROINTESTINAL: Abdomen soft, non-tender, nondistended. Hepatic and splenic margins not palpable. MUSCULOSKELETAL: No obvious deformities. No clubbing. No cyanosis. No edema. NEUROLOGICAL: Awake and alert. No obvious cranial nerve deficits. Motor grossly within normal limits. Normal sensation. No ataxia. Normal speech. PSYCHIATRIC: Appropriate mood and affect; insight and judgment normal. Course Initial Documented Vital Signs Temperature 98.0 F 06/15/18 17:44 Pulse Rate 74 06/15/18 17:44 Respiratory Rate 18 06/15/18 17:44 Blood Pressure 160/72 H 06/15/18 17:44 Pulse Oximetry 98 06/15/18 17:44 Last Documented Vital Signs Temperature 98.0 F 06/15/18 17:44 Pulse Rate 74 06/15/18 18:15 Respiratory Rate 18 06/15/18 17:44 Blood Pressure 160/72 H 06/15/18 17:44 Pulse Oximetry 97 06/15/18 18:15 Medical Decision Making [facility] Narrative Medical decision making narrative: Patient is a 62-year-old female, past medical history significant for hypertension hyperlipidemia who presents with complaint of intermittent chest pressure throughout the day. She appears well and is not having the symptoms on arrival. EKG is without acute ischemic changes. Labs including troponin and chest x-ray are unremarkable. She has not had any further episodes of discomfort while in the emergency department. I spoke with Dr. Baxter, hospitalist on-call, who agreed to admission for a chest pain rule out with serial troponins and EKGs with possible stress test in the morning. Patient was also made aware of this and agreed to her observation stay. Medical Screen Exam Complete: Yes Emergency Medical Condition: Yes Differential Diagnosis Differential Diagnosis: Differential diagnosis includes but is not limited to acute coronary syndrome, pneumonia, pneumothorax, anemia. Medical Records Medical records reviewed: Yes I reviewed the patient's medical records. Lab Data Lab results reviewed: Yes I reviewed the patient's lab results. Result diagrams: 06/15/18 18:22 06/15/18 18:22 Lab Results 06/15/18 06/15/18 Range/Units 18:22 18:22 CBC w Diff Auto diff final WBC 14.0 H (4.0-11.0) th/mm3 RBC 4.33 (4.00-5.30) mil/mm3 Hgb 12.8 (11.6-15.3) gm/dL Hct 38.0 (35.0-46.0) % MCV 87.9 (80.0-100.0) fL MCH 29.5 (27.0-34.0) pg MCHC 33.6 (32.0-36.0) % RDW 13.0 (11.6-17.2) % Plt Count 275 (150-450) th/mm3 MPV 10.8 (7.0-11.0) fL Neut % (Auto) 85.5 H (16.0-70.0) % Lymph % (Auto) 11.0 (9.0-44.0) % [place] % (Auto) 2.9 (0.0-8.0) % Eos % (Auto) 0.2 (0.0-4.0) % Baso % (Auto) 0.4 (0.0-2.0) % Neut # (Auto) 12.0 H (1.8-7.7) th/mm3 Lymph # (Auto) 1.5 (1.0-4.8) th/mm3 [place] # (Auto) 0.4 (0.0-0.9) th/mm3 Eos # (Auto) 0.0 (0.0-0.4) th/mm3 Baso # (Auto) 0.1 (0.0-0.2) th/mm3 WBC Differential . Differential Comment . Sodium 140 (136-145) meq/L Potassium 3.4 L (3.5-5.1) meq/L Chloride 106 (98-107) meq/L Carbon Dioxide 21.3 (21.0-32.0) meq/L Anion Gap 13 (5-15) meq/L BUN 32 H (7-18) mg/dL Creatinine 1.20 H (0.50-1.00) mg/dL Estimated GFR 45 L (>89) mL/min Random Glucose 133 H (74-106) mg/dL Calcium 8.1 L (8.5-10.1) mg/dL Total Bilirubin 0.3 (0.2-1.0) mg/dL AST 17 (15-37) U/L ALT 31 (10-53) U/L Alkaline Phosphatase 64 (45-117) U/L Troponin I Less than 0.02 L (0.02-0.05) ng/mL Total Protein 7.0 (6.4-8.2) g/dL Albumin 3.8 (3.4-5.0) g/dL Imaging Data Attestation: I personally reviewed and interpreted this imaging study as follows : My impression: No acute cardiopulmonary process. Radiologist's impression: Chest X-Ray 06/15/18 18:20 CONCLUSION: No acute findings. Tortuous aorta. ECG Data EKG Prior to Arrival: No Attestation: I personally reviewed and interpreted this ECG as follows: (Sinus rhythm at a rate of [address] or T-wave changes.) Discharge Plan Discharge Disposition Patient Disposition: 30 Still Patient Discharge Condition Condition: Stable Discharge Details Diagnosis: Chest pain, rule out acute myocardial infarction Physicians Team ED Provider: Dacia Damon Primary Care Provider: Jeffrey Lau Rxs /Orders / Referrals /Forms Prescriptions: No Action albuterol sulfate 2.5 mg Inhalation DAILY RF: 0 albuterol sulfate 2.5 mg Inhalation BID RF: 0 levothyroxine 50 mcg PO DAILY RF: 0 lisinopril 40 mg PO DAILY RF: 0 lovastatin 40 mg PO DAILY RF: 0 tramadol 50 mg PO DAILY PRN (Reason: Pain) RF: 0 Discharge Instructions Patient Printed Instructions: Chest Pain (ED) Status ED Status: With Doctor
[2018-06-15] MEDS ORDERED: Acetaminophen 500 MG Tablet PO PRN (19:35)
[2018-06-15] MEDS: Sod Chloride 0.9% Inj 1,000 ML IV.CONT SCH (21:30)
[2018-06-15] MEDS: Heparin - SQ 10,000 UNITS/ML Vial SQ SCH (22:11)
[2018-06-15 22:20] LABS: Creatine Kinase 100 U/L (26-192)
[2018-06-16 01:46] LABS: Creatine Kinase 86 U/L (26-192)
[2018-06-16] MEDS: Sod Chloride 0.9% Inj 1,000 ML IV.CONT SCH (06:13)
[2018-06-16] MEDS: Heparin - SQ 10,000 UNITS/ML Vial SQ SCH (06:14)
--- NOTE | 2018-06-16 07:48 | ECG ---
Date Performed: 06/15/2018 Time Performed: 17:55:23 PTAGE: 62 years EKG: Sinus rhythm NORMAL ECG PREVIOUS TRACING : 02/09/2018 16.01 Since the previous tracing, no significant change noted DOCTOR: Anabel Bull Interpretating Date/Time 06/16/2018 07:46:53
--- NOTE | 2018-06-16 07:48 | ECG ---
Date Performed: 06/15/2018 Time Performed: 21:33:42 PTAGE: 62 years EKG: Sinus rhythm NORMAL ECG PREVIOUS TRACING : 06/15/2018 17.55 Since the previous tracing, no significant change noted DOCTOR: Anabel Bull Interpretating Date/Time 06/16/2018 07:47:03
--- NOTE | 2018-06-16 07:53 | P.HP ---
History of Present Illness Primary Care Physician: Jeffrey Lau Chief Complaint: chest pain History of Present Illness: This is a 62-year-old female patient with a known medical history of hypertension, hyperlipidemia, COPD and history of melanoma presented to the ED with complaints of chest pain. Patient states that she was driving yesterday she felt a fluttering in her chest and became dizzy as well as weak. She states that she had associated stabbing pain and felt like there was 100 pounds on her chest. She states that the sensation lasted a couple seconds and then went away on its own with no known alleviating or aggravating factors. Patient does admit to associated nausea. Denies any associated vomiting, diaphoresis. She does state she had mild shortness of breath with the pain. She states she did have a cardiac stress test over a year ago which was reportedly negative. She does follow with laboratory engineer although does not remember his name. PCP was seen roughly 4 weeks ago, denies any new medications. Patient denies any recent antibiotic use. Denies any recent fevers, chills, cough, vomiting, diarrhea or dysuria. Patient does follow with car electronics installer for "precancerous lesions in esophagus" undergoes frequent EGDs. She states that she does have pain in her throat. Denies any congestion or cough with phlegm. - Diagnosis (1) Chest pain, rule out acute myocardial infarction Review of Systems All other systems reviewed negative except as stated in HPI PMFSH - History History Provided By: Patient - Medical History Medical History: Medical History (Last Reviewed 06/15/18 @ 19:22 by Dacia Damon MD) COPD (chronic obstructive pulmonary disease) with emphysema H/O: hysterectomy High cholesterol Hypertension Hypothyroid Melanoma - Surgical History Surgical History: Surgical History (Last Updated 06/16/18 @ 08:11 by Chelsey Brewer) History of bowel resection - Family History Family History: Family History (Last Updated 06/16/18 @ 08:12 by Chelsey Brewer) Other Cardiovascular disease - Tobacco History Second Hand Smoke Exposure: No Tobacco Use In Past 30 Days: No Smoking Status: Former smoker Tobacco Type: Cigarettes - Alcohol History How Often Do You Have a Drink Containing Alcohol: Never - Substance Use History Substance History: No History of Abuse - Travel History Recent Travel in the [place] Within the Last 8 Weeks: No Recent Travel Out of the Country Within the Last 8 Weeks: No - Immunization History Tetanus Immunization: <5 Years Hx Influenza Vaccine This Season: Yes Medications and Allergies Active Medications: Active Medications Acetaminophen (Tylenol) 500 mg PO Q4H PRN PRN Reason: HEADACHE Aspirin (Aspirin) 325 mg PO DAILY [facility] Heparin Sodium (Porcine) (Heparin Inj) 5,000 units SQ Q8HR [facility] Last Admin: 06/16/18 06:14 Dose: 5,000 units Sodium Chloride (Ns Inj) 1,000 mls @ 100 mls/hr IV.CONT .Q10H [facility] Last Admin: 06/16/18 06:13 Dose: 100 mls/hr Nitroglycerin (Nitrostat Sl) 0.4 mg SL Q5M PRN PRN Reason: CHEST PAIN Sodium Chloride (Ns Flush) 2 ml IV.FLUSH UNSCH PRN PRN Reason: FLUSH AFTER USING IV ACCESS Sodium Chloride (Ns Flush) 2 ml IV.FLUSH BID [facility] Last Admin: 06/15/18 21:30 Dose: 2 ml Sodium Chloride (Ns Flush) 2 ml IV.FLUSH PRN PRN PRN Reason: FLUSH AFTER USING IV ACCESS Allergies Allergy/AdvReac Type Severity Reaction Status Date / Time ciprofloxacin Allergy Severe TONGUE Verified 06/15/18 18:49 SWELLING Home Medications Medication Instructions Recorded Confirmed Type albuterol sulfate 2.5 mg INHALATION Q4H PRN 06/16/18 06/16/18 History levothyroxine 50 mcg PO QAM 06/16/18 06/16/18 History lisinopril 40 mg PO DAILY 06/16/18 06/16/18 History lovastatin 40 mg PO QPM 06/16/18 06/16/18 History tramadol 50 mg PO BID PRN 06/16/18 06/16/18 History Exam Vital signs: Vital Signs 06/15/18 17:44 06/15/18 18:15 06/15/18 20:38 Temperature 98.0 F Pulse Rate 74 74 63 Respiratory Rate 18 15 Blood Pressure 160/72 H 133/80 Pulse Oximetry 98 97 92 L 06/15/18 21:29 06/15/18 23:15 06/15/18 23:18 Temperature 97.5 F L Pulse Rate 61 62 Respiratory Rate 18 Blood Pressure 175/81 H Pulse Oximetry 95 94 L 06/16/18 00:00 06/16/18 04:00 Temperature 97.3 F L 96.5 F L Pulse Rate 64 66 Respiratory Rate 18 18 Blood Pressure 131/65 138/90 Pulse Oximetry 95 96 Intake & Output 06/15/18 06/16/18 06/16/18 18:59 06:59 18:59 Intake Total 1100 / 1100 Balance 1100 / 1100 Weight 124 kg 123.2 kg Intake: IV 900 / 900 NS Inj 1,000 ML @ 100 mls/hr IV 900 / 900 .CONT .Q10H [facility] Rx#:[id number] Oral 200 / 200 Other: # Voids 2 Weight On Admission 123.2 kg Narrative: GENERAL: Well-developed, obese female patient in [facility]. SKIN: Warm and dry. No rash. HEAD: Normocephalic. Atraumatic. EYES: Pupils equal and round. No scleral icterus. No injection or drainage. ENT: No nasal bleeding or discharge. Mucous membranes pink and moist. NECK: Supple. Trachea midline. CARDIOVASCULAR: Regular rate and rhythm. S1, S2 noted. No murmur appreciated. RESPIRATORY: No accessory muscle use. Clear to auscultation. Breath sounds equal bilaterally. GASTROINTESTINAL: Abdomen soft, non-tender, nondistended. Normoactive bowel sounds x4. MUSCULOSKELETAL: No obvious deformities. Extremities without clubbing, cyanosis , or edema. NEUROLOGICAL: Awake and alert. No obvious cranial nerve deficits. Motor grossly within normal limits. 5/5 muscle strength in bilateral upper and lower extremities. Normal speech. PSYCHIATRIC: Appropriate mood and affect; insight and judgment normal. - Constitutional no acute distress - Routine HEENT Exam Head: Present: normocephalic Eye: Present: EOMI - Routine Neck Exam Present: supple Results - Labs CBC & Chem 7: 06/15/18 18:22 06/15/18 18:22 Labs: Laboratory Results - last 24 hr 06/15/18 06/15/18 06/15/18 18:22 18:22 21:40 CBC w Diff Auto diff final WBC 14.0 H RBC 4.33 Hgb 12.8 Hct 38.0 MCV 87.9 MCH 29.5 MCHC 33.6 RDW 13.0 Plt Count 275 MPV 10.8 Neut % (Auto) 85.5 H Lymph % (Auto) 11.0 Teller % (Auto) 2.9 Eos % (Auto) 0.2 Baso % (Auto) 0.4 Neut # (Auto) 12.0 H Lymph # (Auto) 1.5 Teller # (Auto) 0.4 Eos # (Auto) 0.0 Baso # (Auto) 0.1 WBC Differential . Differential Comment . Sodium 140 Potassium 3.4 L Chloride 106 Carbon Dioxide 21.3 Anion Gap 13 BUN 32 H Creatinine 1.20 H Estimated GFR 45 L Random Glucose 133 H Calcium 8.1 L Total Bilirubin 0.3 AST 17 ALT 31 Alkaline Phosphatase 64 Total Creatine Kinase 100 Troponin I Less than 0.02 L Less than 0.02 L Total Protein 7.0 Albumin 3.8 06/16/18 00:45 CBC w Diff WBC RBC Hgb Hct MCV MCH MCHC RDW Plt Count MPV Neut % (Auto) Lymph % (Auto) Teller % (Auto) Eos % (Auto) Baso % (Auto) Neut # (Auto) Lymph # (Auto) Teller # (Auto) Eos # (Auto) Baso # (Auto) WBC Differential Differential Comment Sodium Potassium Chloride Carbon Dioxide Anion Gap BUN Creatinine Estimated GFR Random Glucose Calcium Total Bilirubin AST ALT Alkaline Phosphatase Total Creatine Kinase 86 Troponin I Less than 0.02 L Total Protein Albumin - Imaging Impressions Chest X-Ray 06/15/18 18:20 CONCLUSION: No acute findings. Tortuous aorta. Caprini VTE Risk Assessment Caprini VTE Risk Assessment: Moderate/High Risk (score >= 2) Caprini Risk Assessment Model: Point Value = 1 Point Value = 2 Point Value = 3 Point Value = 5 Age 41-60 Minor surgery BMI > 25 kg/m2 Swollen legs Varicose veins or History of unexplained or recurrent spontaneous Oral contraceptives or hormone replacement Sepsis (< 1 month) Serious lung disease, including pneumonia (< 1 month) Abnormal pulmonary function Acute myocardial infarction Congestive heart failure (< 1 month) History of inflammatory bowel disease Medical patient at bed rest Age 61-74 Arthroscopic surgery Major open surgery (> 45 min) Laparoscopic surgery (> 45 min) Malignancy Confined to bed (> 72 hours) Immobilizing plaster cast Central venous access Age >= 75 History of VTE Family history of VTE Factor V Leiden Prothrombin [id number] Lupus anticoagulant Anticardiolipin antibodies Elevated serum homocysteine Heparin-induced thrombocytopenia Other congenital or acquired thrombophilia Stroke (< 1 month) Elective arthroplasty Hip, pelvis, or leg fracture Acute spinal cord injury (< 1 month) Prophylaxis Regimen: Total Risk Factor Score Risk Level Prophylaxis Regimen 0-1 Low Early ambulation 2 Moderate Order ONE of the following: *Sequential Compression Device (SCD) *Heparin 5000 units SQ BID 3-4 Higher Order ONE of the following medications: *Heparin 5000 units SQ TID *Enoxaparin/Lovenox 40 mg SQ daily (WT < 150 kg, CrCl > 30 mL/min) *Enoxaparin/Lovenox 30 mg SQ daily (WT < 150 kg, CrCl > 10-29 mL/min) *Enoxaparin/Lovenox 30 mg SQ BID (WT < 150 kg, CrCl > 30 mL/min) AND/OR *Sequential Compression Device (SCD) 5 or more Highest Order ONE of the following medications: *Heparin 5000 units SQ TID (Preferred with Epidurals) *Enoxaparin/Lovenox 40 mg SQ daily (WT < 150 kg, CrCl > 30 mL/min) *Enoxaparin/Lovenox 30 mg SQ daily (WT < 150 kg, CrCl > 10-29 mL/min) *Enoxaparin/Lovenox 30 mg SQ BID (WT < 150 kg, CrCl > 30 mL/min) AND *Sequential Compression Device (SCD) Assessment and Plan - Assessment (1) Chest pain, rule out acute myocardial infarction Code(s): R07.9 - Chest pain, unspecified Status: Acute - Plan This is a 62-year-old patient with: Chest pain -Patient has been admitted to the chest pain center for observation. Serial EKGs and serial troponins have been ordered for ruling out ACS. -Serial troponins negative. EKG reviewed showing sinus bradycardia, no ST changes to indicate any ischemia. Chest pain is not resolved. -Aspirin and Nitroglycerin given in ED. -Chest x-ray reviewed showing no acute cardiopulmonary disease. -Patient will be continued on cardiac telemetry, no arrhythmias overnight. -Patient will undergo a cardiac stress test to further rule out any ischemia. -Further hospitalization treatment plan will depend on nuclear imaging results. -Patient is stable at this time and agreeable to plan. Hypokalemia -Given repletion. Monitor. Acute kidney injury -Creatinine 1.2. Given IVF. Will monitor. No history of renal disease. DVT Prophylaxis: SCDs. Ambulation. Discharge Planning: Awaiting nuclear stress test results.
[2018-06-16 08:41] VITALS: O2SAT 95
[2018-06-16] MEDS ORDERED: Aspirin 325 MG Tablet PO SCH (09:00)
[2018-06-16] MEDS ORDERED: Regadenoson Inj 0.4 MG/5 ML Syringe IV.PUSH ONE (10:19)
[2018-06-16] MEDS ORDERED: Levothyroxine 50 MCG Tablet PO SCH (12:00)
[2018-06-16] MEDS ORDERED: Lisinopril 20 MG Tablet PO SCH (12:00)
--- NOTE | 2018-06-16 12:00 | NM ---
EXAM DATE: 06/16/2018 11:25 AM EDT AGE/SEX: 62 years / Female INDICATIONS:Angina. . Substernal chest pain radiating to left neck. CLINICAL DATA: This is the patient's initial encounter. Patient reports that signs and symptoms have been present for 1 day and indicates a pain score of 6/10. MEDICAL/SURGICAL HISTORY: Chronic obstructive pulmonary disease. Hypothyroidism. Hypertension . Hysterectomy. COMPARISON: No prior exams available for comparison. DOSE: 11 mCi Tc 99m Myoview at rest 35 mCi [id number] at stress 0.4 mg Lexiscan STRESS SYMPTOMS: Dyspnea, nausea and headache. EJECTION FRACTION: 62 % TECHNIQUE: The patient underwent pharmacologic stress with infusion of prescribed dose. Continuous ECG tracing was monitored during stress. Gated SPECT imaging was performed after stress and conventi onal SPECT imaging was performed at rest. The examination was performed on a SPECT/CT scanner, both attenuation and non-corrected datasets were reviewed. FINDINGS: Distribution: The maximum perfused segment at stress is in the mid posterior wall. Perfusion Study: The pattern of perfusion at stress is within normal limits. Gated Study: There are intact wall motion and wall thickening without hypokinetic or dyskinetic segm ents. The ejection fraction is calculated at 62%. RISK CATEGORY: Low (<1% Annual Motality Rate) CONCLUSION: 1. No evidence of ischemia or infarct Electronically signed by: Chino Carrera MD 06/16/2018 11:59 AM EDT
[2018-06-16 12:08] VITALS: BP 175/81; PULSE 61; RESP 14; TEMP 97.5
--- NOTE | 2018-06-16 16:48 | TR ---
Date Performed: 06/16/2018 Time Performed: 10:42:38 DOCTOR: Anabel Bull DRUG LIST: CLINICAL HISTORY: REASON FOR TEST: Chest pain REASON FOR ENDING: OBSERVATION: CONCLUSION: Lexiscan stress test was performed under standard four minute protocol. Radionuclid e was injected one minute prior to ending the test. No electrocardiographic abormalities were present to suggest ischemia. Nuclear imaging and interpretation are pending. COMMENTS: No electrocardiographic abormalities were present to suggest ischemia. Nuclear imaging and interpretation are pending.
--- NOTE | 2018-06-16 17:51 | ECG ---
Date Performed: 06/16/2018 Time Performed: 00:27:41 PTAGE: 62 years EKG: SINUS BRADYCARDIA Since the previous tracing, no significant change noted BORDERLINE ECG PREVIOUS TRACING : 06/15/2018 21.33 DOCTOR: Anabel Bull Interpretating Date/Time 06/16/2018 17:48:30
== END 2018-06-16 17:17 | disposition home or self-care (01) ==
LOC: PHED 17:41 → PHEDA 17:41 → PH3 21:07
PROVIDERS: ADMIT Family Medicine; ATTEND Family Medicine